=== PATIENT | male | born 1985 | race Caucasian/White ===

== ENCOUNTER 2017-05-22 15:12 | Inpatient (IN) | payer OTHER ==
[~2017-05-22] VITALS: Ht 180.3 cm; Wt 59.0 kg
[~2017-05-22 15:12] MED LIST: Acetaminophen PO; IBUP-1953 PO; SERT50TA PO; SUBOXON PO; TRAZ-144 PO
--- NOTE | 2017-05-22 15:45 | NUR ---
INTAKE ASSESSMENT RECEIVED PT AOX4, STABLE, AND AMBULATORY. VITAL SIGNS COMPLETE. BP A LITTLE LOW, BUT VITAL SIGNS ARE STABLE AND PATIENT IS NOT WEAK OR EXPERIENCING ANY NEGATIVE S/S. PT REPORTS NKA. PT REPORTS SEIZURE HX IN 2011. EXPLAINED DISPOSAL OF NARCOTICS. EXPLAINED UNIT PROTOCOLS AND POLICIES AND PT VERBALIZED UNDERSTANDING. WILL ADMIT PT UPON ARRIVAL TO THIRD FLOOR.
[2017-05-22 16:00] VITALS: BP 95/61
[2017-05-22 16:26] LABS: *AMPHETAMINE, URINE POSITIVE (NEGATIVE); *BARBITURATE, URINE POSITIVE (NEGATIVE); *CANNABINOID, URINE NEGATIVE (NEGATIVE); *COCCAINE, URINE NEGATIVE (NEGATIVE); *OPIATE, URINE POSITIVE (NEGATIVE); *PHENCYCLIDINE SCREEN,URINE NEGATIVE (NEGATIVE)
--- NOTE | 2017-05-22 16:31 | NUR ---
ADMISSION NOTE VITAL SIGNS BP-95/62 HR-84 O2-97% TEMP-98.5 PAIN 07/03 HEIGHT-5'11 WEIGHT-130 LBS ALLERGIES-NKA PATIENT IS A 31 YEAR OLD MALE ADMITTED TO [facility] ON 05/22/17 AT 1600. PATIENT IS UNDER THE CARE FOR DR FARMER FOR ETOH, OPIATE, BENZO, METH DEPENDENCE. PATIENT DENIES SUICIDAL OR HOMICIDAL IDEATIONS. PATIENT DENIES BEING HOSPITALIZED IN THE LAST 30 DAYS. PATIENT DENIES CHEST PAIN OR SOB. UPON ASSESSMENT, PATIENT HAS ONE ABSCESS TO RIGHT FOREARM AND ONE TO LEFT FOREARM. COWS 13 CIWA 12 UPON ADMISSION. NKA. AOX4. FULL CODE. ABLE TO ANSWER QUESTIONS FOR ADMISSION PROCESS. PATIENT DENIES HAVING PCP. BREATHING IS EVEN AND UNLABORED. PT AMBULATES WITH STEADY GAIT. PT REPORTS "A MILLION" TREATMENT CENTERS AND UNABLE TO LIST THEM ALL. REPORTS HX OF ANXIETY, DEPRESSION, HEPATITIS C. PT REPORTS BEING HOMELESS. PT SMOKES ABOUT 1 PACK OF CIGARETTES PER DAY. DR FARMER HAS BEEN NOTIFIED AND PLACED PT UNDER OBSERVATION. ALL NEEDS MET. ALL SAFETY MEASURES IN PLACE.BED IN LOWEST POSITION, LOCKED, SIDE RAILS UP X2 AND PADDED, CALL LIGHT WITHIN REACH. WILL MONITOR CLOSELY. SUBSTANCE ABUSE ETOH 1/5TH PER DAY FOR 4 MONTHS SINCE RELAPSE, STARTED AT AGE 23. LAST DRANK 1 BEER 05-22-17 BENZO 15 MG/DAY FOR 4 MONTHS SINCE RELAPSE, STARTED AGE 26. LAST TOOK 12 MG XANAX HEROIN 1-2G/DAY FOR 4 MONTHS SINCE RELAPSE, STARTED AGE 26. LAST USED 1/2 GRAM 05-20-17 METH 1 GRAM/DAY FOR 4 MONTS SINCE RELAPSE, STARTED AGE 29. LAST USED UNKNOWN AMOUNT 05-21-17
[2017-05-22] MEDS ORDERED: LORAZEPAM 2 MG/1 ML VIAL IM PRN (17:30)
[2017-05-22] MEDS ORDERED: ONDANSETRON 4 MG/2 ML VIAL IM PRN (17:30)
[2017-05-22] MEDS ORDERED: diphenhydrAMINE 50 MG CAPSULE PO PRN (17:30)
[2017-05-22] MEDS ORDERED: MIRALAX 17 GM POWD.PACK PO PRN (17:30)
[2017-05-22] MEDS ORDERED: MAG HYDROX/AL HYDROX/SIMETH 30 ML LIQUID UDC PO PRN (17:30)
[2017-05-22] MEDS ORDERED: ONDANSETRON ODT 4 MG TAB.RAPDIS SL PRN (17:30)
[2017-05-22] MEDS ORDERED: DIAZEPAM 10 MG TABLET PO PRN ×2 (17:30)
[2017-05-22] MEDS ORDERED: DICYCLOMINE HCL 20 MG TABLET PO PRN (17:30)
[2017-05-22] MEDS ORDERED: BUPRENORPHINE HCL 2 MG TAB.SUBL SL PRN (17:30)
[2017-05-22] MEDS ORDERED: THIAMINE HCL 200 MG/2 ML VIAL IM ONE (17:30)
[2017-05-22] MEDS ORDERED: ACETAMINOPHEN 325 MG TABLET PO PRN (17:30)
[2017-05-22] MEDS ORDERED: DIAZEPAM 5 MG TABLET PO PRN (17:30)
[2017-05-22] MEDS ORDERED: METHOCARBAMOL 750 MG TABLET PO PRN (17:30)
[2017-05-22] MEDS ORDERED: CLONIDINE HCL 0.1 MG TABLET PO PRN (17:30)
[2017-05-22] MEDS ORDERED: HYDROXYZINE PAMOATE 25 MG CAPSULE PO PRN (17:30)
[2017-05-22] MEDS ORDERED: LOPERAMIDE HCL 2 MG CAPSULE PO PRN ×2 (17:30)
[2017-05-22] MEDS: CALCIUM CARBONATE 500 MG TAB.CHEW PO PRN (17:50)
[2017-05-22] MEDS: DIAZEPAM 10 MG TABLET PO SCH ×2 (17:51→20:25)
[2017-05-22] MEDS: BUPRENORPHINE HCL 2 MG TAB.SUBL SL SCH ×2 (17:51→20:26)
--- NOTE | 2017-05-22 18:34 | NUR ---
END OF SHIFT NOTE ADMITTED PATIENT THIS SHIFT. PATIENT GIVEN VALIUM AND SUBUTEX ORDERED. PATIENT GIVEN PRN TUMS. COWS 13 CIWA 12 UPON ADMISSION. PATIENT PRESENTS WITH FLAT AFFECT AND DEPRESSED MOOD. PICTURES OF BILAT FOREARM WOUNDS TAKEN- ENDORSED TO NIGHT NURSE THAT ENGINEERING ADMINISTRATOR IS NOT WORKING AND IT IS SCHEDULED TO COME IN THE MORNING. PATIENT IS IN STABLE CONDITION. NO DISTRESS NOTED. PT DENIES S/I OR H/I. ALL NEEDS MET ALL SAFETY MEASURES IN PLACE. WILL ENDORSE TO NIGHT NURSE
[2017-05-22 19:57] LABS: BASOPHILS # (AUTO) 0.3 K/uL (0.0-8.0); BASOPHILS % (AUTO) 1.9 % (0.0-2.0); EOSINOPHILS # (AUTO) 0.2 K/uL (0.0-0.7); EOSINOPHILS % (AUTO) 1.4 % (0.0-7.0); HEMATOCRIT 40.6 % (40-50); HEMOGLOBIN 13.6 G/DL (14.0-18.0); LYMPHOCYTES # (AUTO) 1.4 K/UL (0.8-4.8); LYMPHOCYTES % (AUTO) 9.2 % (20.5-51.5); MEAN CORPUSCULAR HEMOGLOBIN 30.5 UUG (27.0-31.0); MEAN CORPUSCULAR HGB CONC 34 g/dL (32.0-37.0); MEAN CORPUSCULAR VOLUME 91.3 FL (82.0-92.0); MONOCYTES # (AUTO) 0.8 K/UL (0.1-1.30); MONOCYTES % (AUTO) 5.5 % (0.0-11.0); NEUTROPHILS # (AUTO) 12.2 K/UL (1.8-8.9); PLATELET COUNT (AUTO) 254 K/UL (150-450); RED BLOOD CELL COUNT(AUTO) 4.45 MIL/UL (4.7-6.1); WHITE BLOOD COUNT (AUTO) 14.9 K/UL (4.0-11.2)
[2017-05-22 20:00] VITALS: BP 107/61
--- NOTE | 2017-05-22 20:00 | NUR ---
STAR OF SHIFT NOTE PATIENT IN ROOM, ALERT AND ORIENTED X 4. RESPIRATION EVEN AND UNLABORED. PATIENT REPORTS ANXIETY, ABDOMINAL CRAMPING, HOT AND COLD SWEATS, CONSTIPATION. NO N/V. PATIENT STATES APPETITE IS POOR AT THIS TIME, HE ATTENDED THE LAST GROUP. ENCOURAGE FLUIDS. RECEIVED REPORT FROM DAY SHIFT NURSE. PATIENT IS A 31 YEAR OLD MALE NEWLY ADMITTED FOR SUBSTANCE DEPENDENCE. PATIENT IS ON 5 DAY VALIUM AND 5 DAY SUBUTEX TAPER. PATIENT REPORTS PMH OF ANXIETY,DEPRESSION, HEP C AND SEIZURE LAST ONE WAS 2011. UPON ADMISSION, PATIENT WITH ABSCESSES ON BILATERAL ARMS. PATIENT WAS GIVEN PRN VALIUM,SUBUTEX AND TUMS. LAST COWS 13 AND CIWA 12. ON FALL/SEIZURE PRECAUTION. SAFETY MEASURES IN PLACE. CALL LIGHT IN REACH. WILL CONTINUE TO MONITOR.
[2017-05-22 20:13] LABS: ALANINE AMINOTRANSFERASE 61 U/L (16-63); ALKALINE PHOSPHATASE 81 U/L (50-136); ASPARTATE AMINOTRANSFERASE 59 U/L (15-37); BILIRUBIN,TOTAL 0.4 mg/dL (0.2-1.0); CARBON DIOXIDE 28 mmol/L (21-32); CHLORIDE 96 mmol/L (98-107); CREATININE 0.8 mg/dL (0.6-1.3); GLUCOSE 81 mg/dL (74-106); MAGNESIUM 2.1 mg/dL (1.8-2.4); POTASSIUM 4.3 mmol/L (3.5-5.1); TOTAL PROTEIN, SERUM 7.5 g/dL (6.4-8.2); UREA NITROGEN, BLOOD 30 mg/dL (7-18)
[2017-05-22] MEDS: GABAPENTIN 300 MG CAPSULE PO SCH (20:25)
[2017-05-22 20:33] LABS: ETHANOL < 3 MG/DL (0-0)
--- NOTE | 2017-05-22 20:41 | NUR ---
PRN MIRALAX ADMINISTRATION PATIENT STATES HE HASN'T HAVE A BOWEL MOVEMENT FOR 4 DAYS. PRN MIRALAX GIVEN. ENCOURAGE FLUIDS. WILL MONITOR FOR EFFECTIVENESS
[2017-05-22] MEDS ORDERED: TRAZODONE 50 MG TABLET PO SCH (21:00)
[2017-05-23] VITALS: BP 94/57
[2017-05-23 04:00] VITALS: BP 88/56
--- NOTE | 2017-05-23 06:51 | NUR ---
PRN MIRALAX RE-ASSESSMENT PATIENT DID NOT HAVE BOWEL MOVEMENT . WILL ENDORSE TO NEXT SHIFT. CONTINUE TO ENCOURAGE FLUIDS.
--- NOTE | 2017-05-23 06:53 | NUR ---
END OF SHIFT NOTE PATIENT REMAIN ALERT AND ORIENTED X 4. RESPIRATION EVEN AND UNLABORED. PATIENT REPORTED ANXIETY, ABDOMINAL CRAMPING, HOT AND COLD SWEATS, CONSTIPATION. NO N/V. DENIES ANY PAIN BEGINNING OF SHIFT. PATIENT STATES APPETITE IS POOR, HE ATTENDED THE LAST GROUP. ENCOURAGE FLUIDS. PATIENT IS ON 5 DAY VALIUM AND 5 DAY SUBUTEX TAPER, TOLERATED WELL, NO ADVERSE REACTION. UPON ADMISSION, PATIENT WITH ABSCESSES ON BILATERAL ARMS. PATIENT WAS GIVEN PRN MIRALAX AT 2040. ON FALL/SEIZURE PRECAUTION. SAFETY MEASURES IN PLACE. CALL LIGHT IN REACH. WILL CONTINUE TO MONITOR. SLEPT 7 HOURS. FLUID INTAKE 1,095 ML. VOIDED X 1. NO BM. LAST COWS 1 AND CIWA 1. ENDORSED TO NEXT SHIFT. PATIENT NO BM, MIRALAX INEFFECTIVE.
--- NOTE | 2017-05-23 07:55 | NUR ---
START OF SHIFT: RECEIVED PT A/O X 4. HE PRESENTS WITH ANXIOUS MOOD AND CONGRUENT AFFECT. HE REPORTS RESTLESS SLEEP LAST NIGHT WITH NIGHT SWEATS. HE REPORTS CHILLS,ANXIETY AND BODY ACHES. TREMORS NOTED. COWS 8 CIWA 8. ENCOURAGED INCREASED FLUIDS AND REST TODAY. VALIUM/SUBUTEX TAPER IN PROGRESS. WILL CONTINUE TO MONITOR AND PROVIDE SAFE AND SUPPORTIVE ENVIRONMENT.
[2017-05-23 08:00] VITALS: BP 100/60
[2017-05-23] MEDS: GABAPENTIN 300 MG CAPSULE PO SCH ×3 (08:34→20:25)
[2017-05-23] MEDS: FOLIC ACID 1 MG TABLET PO SCH (08:34)
[2017-05-23] MEDS: MULTIVITAMINS,THERAPEUTIC TABLET PO SCH (08:34)
[2017-05-23] MEDS: DIAZEPAM 10 MG TABLET PO SCH ×3 (08:36→20:25)
[2017-05-23] MEDS: IBUPROFEN 600 MG TABLET PO PRN (08:36)
[2017-05-23] MEDS: THIAMINE HCL 100 MG TABLET PO SCH (08:37)
[2017-05-23] MEDS: BUPRENORPHINE HCL 2 MG TAB.SUBL SL SCH ×3 (08:37→22:08)
[2017-05-23] MEDS ORDERED: TUBERCULIN,PURIF.PROT.DERIV. 5 TU/0.1 ML TEST ID ONE (09:00)
[2017-05-23 12:00] VITALS: BP 96/69
[2017-05-23] MEDS ORDERED: LIDOCAINE VISCUS 2% 15 ML UDC MM PRN (15:00)
[2017-05-23 16:00] VITALS: BP 99/74
--- NOTE | 2017-05-23 16:04 | NUR ---
Therapist prompted client about group times. Client stated he was attending but got pulled out of group by .
[2017-05-23] MEDS: CALCIUM CARBONATE 500 MG TAB.CHEW PO PRN (19:01)
--- NOTE | 2017-05-23 19:06 | NUR ---
END OF SHIFT: PT CONTINUES ON VALIUM/SUBUTEX TAPER.LAST COWS 8 CIWA 6 HE C/O BODY ACHES, ANXIETY,CRAWLING SKIN AND IRRITABILITY. PT STATES THE DETOX MEDS ARE MILDLY EFFECTIVE. HE WAS COMPLIANT WITH INCREASED FLUIDS. HE C/O CANKER SORES IN HIS MOUTH AND NEW ORDER FOR VISCOUS LIDOCAINE PER MD. HIS APPETITE IS POOR. PPD PLANTED TO [facility]. WILL PASS SHIFT REPORT TO ONCOMING NIGHT NURSE.
--- NOTE | 2017-05-23 19:45 | NUR ---
Start of Shift Note: Report received from day shift nurse. Pt is a 31 y/o male admitted on 05/22/2017 for medically-supervised withdrawal from opiates, ETOH, benzodiazepines, and methamphetamine. Pt reports using 1-2gm IV heroin, drinking 750ml tequila, taking 15mg Xanax, and using 1gm IV methamphetamine salts daily for three months. Pt is on 5-day Valium and Subutex tapers. Pt received with last COWS=8/CIWA=6, and PRN's Xylocaine viscous, Motrin, Robaxin, and Tums were given during day shift. Pt is a full code. Pt reports NKA. Pt is on a regular diet. Pt has abscess on left forearm with Vibramycin ordered. PMHx: anxiety, depression, Hepatitis-C, hx of seizure. Pt received in room, and reports anxiety, diaphoresis, generalized pain, and tremor. Bed is in low position and locked, side rails up x2, call light within reach. Will continue to monitor.
[2017-05-23 20:00] VITALS: BP 105/62
[2017-05-23] MEDS: DOXYCYCLINE HYCLATE 100 MG TABLET PO SCH (20:26)
[2017-05-23] MEDS: TRAZODONE 100 MG TABLET PO PRN (22:25)
--- NOTE | 2017-05-23 22:25 | NUR ---
PRN Trazodone: Pt c/o inability to sleep. Administered PRN Trazodone as ordered. Will continue to monitor.
[2017-05-24] VITALS: BP_SYST 101; BP_SYST 106; BP_DIAS 47; BP_DIAS 48
--- NOTE | 2017-05-24 | NUR ---
COWS/CIWA Deferred: COWS and CIWA are deferred for sleep. V/S stable. All safety precautions are in place. Will continue to monitor. Addendum: 05/24/17 at 0528 by MILAGROS NUÑEZ RN Amended: Links added.
--- NOTE | 2017-05-24 04:00 | NUR ---
Vitals Refused, COWS/CIWA Deferred: Pt refuses 04:00 V/S. Pt educated on risks and benefits but continued to refuse. COWS and CIWA are deferred for sleep. All safety precautions are in place. Will continue to monitor. Addendum: 05/24/17 at 0528 by MILAGROS NUÑEZ RN Amended: Links added.
--- NOTE | 2017-05-24 07:00 | NUR ---
End of Shift Note: Pt is a 31 y/o male admitted to [facility] on 05/22/2017 for medically-supervised withdrawal from opiates, ETOH, benzodiazepines, and methamphetamine. Pt reported a PMHx of anxiety, depression, Hepatitis-C, and hx of seizure. Pt reports NKA. Pt is a full code. Pt is on a regular diet. Pt has abscess on left forearm with Vibramycin ordered. Pt reported using 1-2gm IV heroin, drinking 750ml tequila, taking 15mg Xanax, and using 1gm IV methamphetamine salts daily for three months. Pt continues on 5-day Valium and Subutex tapers. Scheduled medication regime effectively managed s/s of withdrawal this shift. Last COWS=7/CIWA=7 at 20:00. V/S stable throughout shift, with hypotension. Total fluid intake this shift: 4650 ml; output: urine x 7 and BM x 0. PRN Trazodone was given for insomnia, which was not effective as pt slept 3 hours this shift. Pt is currently in bed, all needs have been attended and met. Pt endorsed to day shift nurse.
--- NOTE | 2017-05-24 07:40 | NUR ---
BEGINNING OF SHIFT Patient endorsement report received from maintenance mechanic 2nd shift nurse, all pertinent information discussed. Patient is a 31 year old male, with admitting Dx: opiate/etoh/bzo dependence. with substance use history of methamphetamine. Patient admitted 05/22/2017, currently with ongoing taper of 5 day Subutex and 5 day Valium as ordered, well tolerated, no ASE noted, under close observation. Patient received PRN: trazodone during maintenance mechanic 2nd shift. Patient slept for 3 hours. Patient received awake, alert and oriented x4, educated regarding plan of care for the day and medication regimen with good verbal understanding. Safety measures in place. call light kept with in reach, will continue to monitor closely. safety measures in place.
[2017-05-24 08:22] VITALS: BP 111/72
[2017-05-24] MEDS: MULTIVITAMINS,THERAPEUTIC TABLET PO SCH (08:24)
[2017-05-24] MEDS: GABAPENTIN 300 MG CAPSULE PO SCH (08:24)
[2017-05-24] MEDS: DIAZEPAM 5 MG TABLET PO SCH ×4 (08:25→20:41)
[2017-05-24] MEDS: DOXYCYCLINE HYCLATE 100 MG TABLET PO SCH ×2 (08:25→20:41)
[2017-05-24] MEDS: SERTRALINE HCL 100 MG TABLET PO SCH (08:25)
[2017-05-24] MEDS: THIAMINE HCL 100 MG TABLET PO SCH (08:25)
[2017-05-24] MEDS: FOLIC ACID 1 MG TABLET PO SCH (08:25)
[2017-05-24] MEDS ORDERED: BUPRENORPHINE HCL 2 MG TAB.SUBL SL SCH (09:00)
[2017-05-24 09:08] LABS: HEPATITIS B SURFACE AG Negative (Negative)
[2017-05-24] MEDS ORDERED: DIAZEPAM 10 MG TABLET PO ONE (10:15)
--- NOTE | 2017-05-24 10:37 | NUR ---
Client was encouraged to attend the morning group. He did not confirm that he would, he stated that he was looking for his nurse.
--- NOTE | 2017-05-24 10:38 | NUR ---
ONE TIME VALIUM Per Dr. Lombardo, patient to receive a one time dose of Valium 10mg Po as ordered. Patient with current ciwa score of: 7. Medication administered as ordered, will continue to monitor.
[2017-05-24 12:37] VITALS: BP 92/65
[2017-05-24] MEDS: IBUPROFEN 600 MG TABLET PO PRN (12:39)
--- NOTE | 2017-05-24 12:39 | NUR ---
PRN MOTRIN Patient c/o abscess pain 01/31, provided with non pharmacological interventions, with no relief, administered Motrin as ordered, will monitor closely.
--- NOTE | 2017-05-24 13:39 | NUR ---
MOTRIN REASSESSMENT Patient reports medication with relief, current pain level 0/10, will continue to monitor.
[2017-05-24] MEDS: GABAPENTIN 400 MG CAPSULE PO SCH ×2 (14:36→20:41)
[2017-05-24] MEDS: BACLOFEN 20 MG TABLET PO SCH ×2 (14:36→20:41)
[2017-05-24] MEDS: BUPRENORPHINE HCL 2 MG TAB.SUBL SL SCH ×2 (14:36→20:42)
[2017-05-24 17:00] VITALS: BP 93/60
--- NOTE | 2017-05-24 19:01 | NUR ---
END OF SHIFT Patient alert and oriented x4, vital signs stable during shift. Patient compliant with therapeutic plan of care. Patient with admitting Dx: opiate/bzo/etoh dependence. Patient currently with ongoing 5 day Subutex and 5 day Valium taper as ordered, well tolerated, no ASE noted. 0900 assessment patient presented with: heart rate of 101, c/o chills, restlessness, mild bone and joint aches, nasal stuffiness, stomach cramps, irritable, anxiety, barely sweating and mild agitation with cow score of: 10 and ciwa score of: 7; 1300 assessment patient presented with: c/o chills, restlessness, mild bone and joint aches, nasal stuffiness, stomach cramps, irritable, anxiety, barely sweating and mild agitation with cow score of: 8 and ciwa score of: 7. 1700 assessment patient presented with: heart rate of 97, c/o chills, restlessness, mild bone and joint aches, nasal stuffiness, stomach cramps, irritable, anxiety, barely sweating and mild agitation with cow score of: 9 and ciwa score of: 7. During shift patient received a one time dose of Valium 10mg Po as ordered by Dr. Lombardo at 1038, medication effective. Received PRN Motrin as ordered for pain, medication effective. Patient denies any SI/HI. Encouraged to attend group therapies/sessions to learn new coping skills to prevent relapse, noted attending and participating. Encouraged adequate PO fluid intake as tolerated. Safety measures in place. Call light kept with in reach. All needs met and rendered. Patient endorsed to hourly shift nurse, all pertinent information discussed.
--- NOTE | 2017-05-24 19:30 | NUR ---
Start of Shift Note: Patient is a 31 y/o male admitted on 05/22/17 for ETOH, Benzo and Opiate dependence. Patient reported with medical history of Anxiety, Depression, Hepatitis C and history of seizure in 2012. Patient is on a regular diet with no known food and drug allergies. Full Code status. Patient is on a 5-day Valium and 5-day Subutex taper and tolerating well. Last CIWA is 9 CIWA 7 at 1600. Patient was given PRN Motrin and a one time Valium during the day. Patient is alert & oriented x4. No shortness of breath noted. Respiration even & unlabored. Abdomen soft & non-distended. Slight nausea with no episode of vomiting noted. Patient denies pain/discomfort at this time. Patient complains of anxiety. No hand tremors noted. Patient denies hallucinations. Safety precautions are in place. Bed locked in lowest position. Both side rails up. Call light within pt's reach. Will continue to monitor patient. Addendum: 05/24/17 at 3985 by BOBBY GAVIRIA RN Patient noted with abscess on bilateral arms.
[2017-05-24 20:00] VITALS: BP 120/60
[2017-05-24] MEDS: PRAZOSIN HCL 1 MG CAPSULE PO SCH (20:41)
[2017-05-25] VITALS (7 sets, daily range): BP systolic 89–107; BP diastolic 47–69
[2017-05-25] MEDS: IBUPROFEN 600 MG TABLET PO PRN (00:23)
[2017-05-25] MEDS: TRAZODONE 100 MG TABLET PO PRN (00:24)
--- NOTE | 2017-05-25 00:24 | NUR ---
PRN Trazodone and Motrin Patient complains of mild headache. No facial grimacing noted. No s/s of distress noted. Pt also requesting for medication to help him sleep. PRN Trazodone and Motrin administered as ordered. Will reassess
--- NOTE | 2017-05-25 01:24 | NUR ---
PRN Reassessment Patient asleep in bed and appears comfortable. No facial grimacing noted. No s/s of distress noted. Will continue to monitor patient.
--- NOTE | 2017-05-25 04:00 | NUR ---
Vitals/Cows/Ciwa deferred Patient refused vitals at this time. Patient asleep in bed and appears comfortable. No shortness of breath noted. Unable to assess Ciwa at this time. Will continue to monitor patient.
--- NOTE | 2017-05-25 07:14 | NUR ---
End of Shift Note: Patient had an uneventful night. Patient continues on his Valium and Subutex taper and tolerating well. Last COWS 3 CIWA 3 at 0000. Patient was given PRN Zofran, Motrin & Trazodone during my shift. Patient remained compliant with treatment plan. Patient stable and vitals remained WNL. . Patient slept for a total of 5 hours. Pt consumed 2970ml of fluids. Voided 6x with no bowel movement. All needs attended & met. Patient remained stable. Patient compliant with tx plan. Safety precautions are in place. Will endorse pt to day shift nurse.
[2017-05-25 07:28] LABS: BASOPHILS # (AUTO) 0.1 K/uL (0.0-8.0); EOSINOPHILS # (AUTO) 0.2 K/uL (0.0-0.7); EOSINOPHILS % (AUTO) 1.5 % (0.0-7.0); HEMOGLOBIN 12.6 G/DL (14.0-18.0); LYMPHOCYTES # (AUTO) 1.8 K/UL (0.8-4.8); LYMPHOCYTES % (AUTO) 17.2 % (20.5-51.5); MEAN CORPUSCULAR HEMOGLOBIN 30.7 UUG (27.0-31.0); MEAN CORPUSCULAR HGB CONC 33 g/dL (32.0-37.0); MEAN CORPUSCULAR VOLUME 92.5 FL (82.0-92.0); MONOCYTES # (AUTO) 0.6 K/UL (0.1-1.30); MONOCYTES % (AUTO) 6.3 % (0.0-11.0); NEUTROPHILS # (AUTO) 7.5 K/UL (1.8-8.9); PLATELET COUNT (AUTO) 235 K/UL (150-450); WHITE BLOOD COUNT (AUTO) 10.2 K/UL (4.0-11.2)
--- NOTE | 2017-05-25 07:30 | NUR ---
START OF SHIFT Pt 31 y/o male admitted for substance dependence. Pt received in room on bed awake, watching television. Pt alert and oriented to name, place, and time. Perrla. Skin warm and moist to touch. Respirations even and unlabored. It was reported that pt slept for 5 hours last night. Bed on lowest position with side rails x2 up for safety. Call light within reach. No distress noted at this time.
[2017-05-25 07:57] LABS: CARBON DIOXIDE 36 mmol/L (21-32); CHLORIDE 105 mmol/L (98-107); CREATININE 0.7 mg/dL (0.6-1.3); FERRITIN 70 ng/mL (26-388); GLUCOSE 88 mg/dL (74-106); MAGNESIUM 2.1 mg/dL (1.8-2.4); POTASSIUM 3.6 mmol/L (3.5-5.1); UREA NITROGEN, BLOOD 18 mg/dL (7-18)
[2017-05-25 08:04] LABS: BAND % (MANUAL) 9 % (0-10); LYMPHOCYTES % (MANUAL) 23 % (20-40); MONOCYTES % (MANUAL) 5 % (2-10); NEUTROPHILS % (MANUAL) 63 % (42-75)
[2017-05-25] MEDS: FOLIC ACID 1 MG TABLET PO SCH (08:45)
[2017-05-25] MEDS: SERTRALINE HCL 100 MG TABLET PO SCH (08:45)
[2017-05-25] MEDS: DOXYCYCLINE HYCLATE 100 MG TABLET PO SCH (08:45)
[2017-05-25] MEDS: BUPRENORPHINE HCL 2 MG TAB.SUBL SL SCH ×3 (08:45→20:58)
[2017-05-25] MEDS: DIAZEPAM 5 MG TABLET PO SCH ×3 (08:46→20:59)
[2017-05-25] MEDS: GABAPENTIN 400 MG CAPSULE PO SCH ×2 (08:46→14:40)
[2017-05-25] MEDS: THIAMINE HCL 100 MG TABLET PO SCH (08:46)
[2017-05-25] MEDS: BACLOFEN 20 MG TABLET PO SCH ×3 (08:46→20:59)
[2017-05-25] MEDS: MULTIVITAMINS,THERAPEUTIC TABLET PO SCH (08:46)
[2017-05-25] MEDS ORDERED: BUPRENORPHINE HCL 2 MG TAB.SUBL SL ONE (11:00)
[2017-05-25] MEDS ORDERED: DIAZEPAM 10 MG TABLET PO ONE (11:00)
--- NOTE | 2017-05-25 17:38 | NUR ---
MD COMMUNICATION Contacted Dr. Rosario for wound consult and pt status with bilateral abscesses. MD notified of bilateral arm pain related to the abscess. MD order to put warm compress at this time, and he will come assess pt tomorrow 05/26/17.
[2017-05-25] MEDS ORDERED: HYDROXYZINE PAMOATE 25 MG CAPSULE PO PRN (18:00)
--- NOTE | 2017-05-25 18:22 | NUR ---
END OF SHIFT Pt 31 y/o male admitted for substance dependence. Pt alert and oriented to name, place, and time. Perrla. Skin warm and slightly moist to touch. Respirations even and unlabored. Bilateral hand tremors noted. Pt also stated had periods of sweats and chills throughout the day this morning. Pt observed mostly in patio and dining room throuhgout the day. Pt attended group activity. Pt was seen by MD today. Pt medication compliant and tolerated well. No ASE noted. Bed on lowest position with side rails x2 up for safety. Call light within reach. No distress noted at this time.
--- NOTE | 2017-05-25 18:39 | NUR ---
NSG ENTRY MD here to evaluate pt .
[2017-05-25] MEDS: KETOROLAC TROMETHAMINE 30 MG INJ IM PRN (18:47)
--- NOTE | 2017-05-25 18:48 | NUR ---
PRN Pt states 8/10 left arm pain. Toradol IM prn per MD order given and tolerated well.
--- NOTE | 2017-05-25 19:43 | NUR ---
Start of Shift received report from AM nurse. Patient is a 31 year old male admitted to [facility] on 05-22-17 for Alcohol and opiate detox. Patient has history of using ETOH (tequila) 1/5th per day since age 23. Also using Xanax 15 mg daily since age 26, IV heroin 1-2 grams daily since age 26, and IV methamphetamine 1 gram daily since age 29. Patient also has history of anxiety, depression, Hepatitis C, and a seizure in 2011. Patient is a full code, regular diet and has no known allergies. He is on a 5 day valium and subutex taper. He has an abscess to his left forearm which is planned to be incised and drained tomorrow am. Patient currently using warm compress to area for relief. He received torodol IM for pain with effectiveness. Last CIWA was 3 and COWS 4. Patient denies SI or HI. Has been up ambulating AD genie on unit. Continues to display moderate symptoms of withdrawal. Bed in lowest locked position. Call light within reach.
[2017-05-25] MEDS: LACTOBACILLUS RHAMNOSUS GG 1 EACH CAPSULE PO SCH (20:58)
[2017-05-25] MEDS: GABAPENTIN 300 MG CAPSULE PO SCH (20:58)
[2017-05-25] MEDS: SULFAMETH/TRIMETH 800/160 MG TABLET PO SCH (20:59)
[2017-05-25] MEDS: PRAZOSIN HCL 1 MG CAPSULE PO SCH (21:00)
--- NOTE | 2017-05-25 21:00 | NUR ---
Medication non administered. Prazosin non administered at 2100 due to decreased BP and HR.
[2017-05-26] VITALS: BP 90/60
[2017-05-26] MEDS: TRAZODONE 100 MG TABLET PO PRN (01:52)
--- NOTE | 2017-05-26 01:55 | NUR ---
PRN MEDICATION TRAZODONE 100 MG PO PRN ADMINISTERED AT 0155 FOR INSOMNIA. EFFECT PENDING
--- NOTE | 2017-05-26 03:00 | NUR ---
Reassessment of patient Reassessment of patient one hour after administration of PRN trazodone 100 mg patient resting comfortably in bed with eyes closed. Trazodone appears to have been effective.
--- NOTE | 2017-05-26 04:00 | NUR ---
COWS/CIWA DEFERRED VITAL SIGNS REFUSED PATIENT REFUSED 0400 VITAL SIGNS. PATIENT WITH EYES CLOSED. RESPIRATIONS 18. BREATHING UNLABORED, EVEN. CIWA/COWS DEFERRED FOR SLEEP
--- NOTE | 2017-05-26 06:53 | NUR ---
End of shift report given to AM nurse. Patient is a 31 year old male admitted to [facility] on 05-22-17 for Alcohol and opiate detox. Patient has history of using ETOH (tequila) 1/5th per day since age 23. Also using Xanax 15 mg daily since age 26, IV heroin 1-2 grams daily since age 26, and IV methamphetamine 1 gram daily since age 29. Patient has history of anxiety, depression, Hepatitis C, as well as reports of a seizure in 2011. Patient is a full code, on a regular diet and has no known allergies. He is on a 5 day valium and subutex taper. He has an abscess to his left forearm which is planned to be incised and drained tomorrow am. Patient currently using warm compress to area for relief. Vital signs at 2000 107/50, P 52, R 16, SPO2 95% on RA, T 98.0. Patients COWS 8 CIWA 6. Rechecked Vital signs prior to 2100 medications. BP 101/66, P 60, R 16, T 98.0, Prazosin non administered at 2100 due to not meeting parameters for administration. Vital signs at 0000 BP 90/60, P 65, R 16, SPO2 100% on RA, T 98.4. CIWA 6, COWS 4. Patient received Trazodone for insomnia at 0155, with effect noted one hour later. Patient denies SI or HI. He appears anxious, restless and agitated much of the shift. Has been up ambulating Ad genie on unit. Continues to display moderate symptoms of withdrawal. Intake 1550 ML Output 3 voids. Slept total of 4 hours. Bed in lowest locked position. Call light within reach. Will continue to monitor
--- NOTE | 2017-05-26 07:30 | NUR ---
Start of Shift Copier And Printer Field Technician received report on 31 year old male admitted on 05/22/17 for ETOH, Benzodiazepine, Heroin and Methamphetamine detoxification. Pt has NKA< is a full code and on a regular diet. Pt reports PMH of anxiety, depression, Hepatitis C and seizure, in 2011. Pt has an abscess on the left arm that is scheduled for I&D today. Last COWS of 5 and CIWA of 6, per report. Pt had PRN Trazodone administered on the railroad operating engineer. Copier And Printer Field Technician encounters pt at nurses station. Pt is calm, cooperative, A/O x4 and makes needs known. Anxious about medications. Bed in low position, wheels locked, side rails up x2 and call light within reach.
[2017-05-26 08:13] VITALS: BP 106/48
[2017-05-26] MEDS: SERTRALINE HCL 100 MG TABLET PO SCH (08:23)
[2017-05-26] MEDS: THIAMINE HCL 100 MG TABLET PO SCH (08:23)
[2017-05-26] MEDS: FOLIC ACID 1 MG TABLET PO SCH (08:23)
[2017-05-26] MEDS: GABAPENTIN 300 MG CAPSULE PO SCH (08:23)
[2017-05-26] MEDS: BACLOFEN 20 MG TABLET PO SCH ×3 (08:23→21:07)
[2017-05-26] MEDS: DIAZEPAM 5 MG TABLET PO SCH ×2 (08:23→21:07)
[2017-05-26] MEDS: LACTOBACILLUS RHAMNOSUS GG 1 EACH CAPSULE PO SCH ×2 (08:23→21:07)
[2017-05-26] MEDS: BUPRENORPHINE HCL 2 MG TAB.SUBL SL SCH ×2 (08:23→21:07)
[2017-05-26] MEDS: SULFAMETH/TRIMETH 800/160 MG TABLET PO SCH ×2 (08:23→21:07)
[2017-05-26] MEDS: MULTIVITAMINS,THERAPEUTIC TABLET PO SCH (08:23)
[2017-05-26] MEDS ORDERED: BUPRENORPHINE HCL 2 MG TAB.SUBL SL SCH (09:00)
[2017-05-26] MEDS ORDERED: BUPRENORPHINE HCL 2 MG TAB.SUBL SL ONE (12:15)
[2017-05-26] MEDS ORDERED: DIAZEPAM 5 MG TABLET PO ONE (12:15)
--- NOTE | 2017-05-26 12:20 | NUR ---
1:1 while showering Pt has been informed he will need to have staff accompany pt as 1:1 while showering. This is due to pt having defecated in the shower this am. Pt has a history of this behavior, from last admission. Pt states, " when I come off drugs, I shit the shower sometimes." Pt aware of need for 1:1 staffing and verbalizes understanding the need for.
--- NOTE | 2017-05-26 12:45 | NUR ---
OT Valium and Subutex Pt administered medication per order, with COWS of 7 and CIWA of 5 recorded. Pt tolerated well. Will continue to monitor, support and encourage according to plan of care.
[2017-05-26 12:48] VITALS: BP 102/60
--- NOTE | 2017-05-26 13:28 | NUR ---
OT Subutex Re-assessment Pt COWS show shows some help with detox symptoms.
--- NOTE | 2017-05-26 13:45 | NUR ---
OT Valium Re-assessment Pt is less anxious and states, " I feel a bit better."
[2017-05-26] MEDS: KETOROLAC TROMETHAMINE 30 MG INJ IM PRN (14:52)
[2017-05-26] MEDS: GABAPENTIN 400 MG CAPSULE PO SCH ×2 (14:52→21:07)
--- NOTE | 2017-05-26 14:52 | NUR ---
IM Toradol Pt complain of 8/10 pain from abscess. Industrial Safety And Health Technician administered medication per order. Will continue to monitor, support and encourage according to plan of care.
--- NOTE | 2017-05-26 15:05 | NUR ---
Endorsement Silverware Buffer endorsed report on 31 year old male admitted on 05/22/17 for ETOH, Benzodiazepine, Heroin and Methamphetamine detoxification, with no further comments, questions or concerns. Pt has NKA, is a full code and on a regular diet. Pt reports PMH of anxiety, depression, Hepatitis C and seizure, in 2011. Pt has an abscess on the left arm that is scheduled for I&D today. Last COWS of 6 and CIWA of 4, per lead technical writer evaluation. Pt had PRN Toradol administered. Pt is calm, cooperative, A/O x4 and makes needs known. Anxious about medications. Bed in low position, wheels locked, side rails up x2 and call light within reach.
--- NOTE | 2017-05-26 15:05 | NUR ---
ENDORSEMENT Pt endorsed to me. All information received. Pt received walking around the hallway.
--- NOTE | 2017-05-26 15:30 | NUR ---
Therapist prompted client about group times. Client stated he will try to attend afternoon group but he is waiting for MD to drain his abscess.
[2017-05-26 16:00] VITALS: BP 107/60
[2017-05-26] MEDS ORDERED: LIDOCAINE 2%-EPI 1:100,000 20 ML VIAL TP ONE (16:45)
[2017-05-26] MEDS ORDERED: LIDOCAINE 1%-EPI 1:200,000 MPF 30 ML VIAL IJ ONE (17:15)
--- NOTE | 2017-05-26 17:50 | NUR ---
I&D Dr. Rosario on unit for I&D procedure of left forearm, completed and pt tolerated well.
--- NOTE | 2017-05-26 19:45 | NUR ---
START OF SHIFT report RECEIVED FROM AM nurse. Patient is a 31 year old male admitted to [facility] on 05-22-17 for Alcohol and opiate detox. Patient has history of using ETOH (tequila) 1/5th per day since age 23. Also using Xanax 15 mg daily since age 26, IV heroin 1-2 grams daily since age 26, and IV methamphetamine 1 gram daily since age 29. Patient has history of anxiety, depression, Hepatitis C, as well as reports of a seizure in 2011. Patient is a full code, on a regular diet and has no known allergies. He is on a 5 day valium and subutex taper. He has an abscess to his left forearm which was incised and drained this afternoon. Currently packed and covered. Last COWS 4 CIWA 3. Patient currently on room restriction, and 1:1 for showering. Patient was nioted to be asking other clients for medications. He also was observed purging in the shower. Patient denies any current self induced vomiting. Denies SI or HI. Vital signs stable. Call light within reach. Safety measures in place. Bed in locked and lowest position.
[2017-05-26 20:00] VITALS: BP 118/74
[2017-05-26] MEDS: PRAZOSIN HCL 1 MG CAPSULE PO SCH (21:07)
[2017-05-27] VITALS: BP 110/66
[2017-05-27] MEDS: TRAZODONE 100 MG TABLET PO PRN ×2 (00:24→21:40)
--- NOTE | 2017-05-27 00:31 | NUR ---
PRN MEDICATION Patient received trazodone 100 mg PO for insomnia effect pending
--- NOTE | 2017-05-27 00:50 | NUR ---
1:1 Patient was observed purging in his bathroom by [employer] doing rounds. Noted large amount of brown emesis in toilet. Patient adamantly denied purging. Nurse discussed this with patient with noted restlessness, defensive behavior, and inability to acknowledge this as true. Patients vital signs taken and WNL. Patient with noted agitation and demanding a smoke break. Patient unable to follow room restriction rules, leaving room, cussing at charge nurse and having difficulty following protocol. Patient was placed on 1:1 for safety at 0050.
--- NOTE | 2017-05-27 01:31 | NUR ---
REASSESSMENT OF PATIENT Patient reassessed one hour after administration of trazodone PRN for insomnia./ Patient esting comfortably in bed, with eyes closed. Remains on 1:1. Trazodone appears to have been effective.
--- NOTE | 2017-05-27 04:10 | NUR ---
COWS/CIWA deferred/VS refused Ptient in bed with eyes closed refused vital signs at 0400. COWS/CIWA deferred for sleep. Patient resting with eyes closed, breathing even and unlabored. Respirations 16.
--- NOTE | 2017-05-27 06:56 | NUR ---
END OF SHIFT REPORT: Endorsement to AM nurse. Patient is a 31 year old male admitted to [facility] on 05-22-17 for opiate, benzo, and ETOH detox. Patient is on a 5 day valium and subutex taper. He has past history of anxiety, depression, eating D/O NOS, Hepatitis C, and a seizure in 2011. Currently had an abscess on left forearm which was incised and drained on 05-26-17. Area is packed and covered with gauze bandage. Patient continues to display withdrawal symptoms with last COWS 7, CIWA 8. He is restless, anxious, and becomes easily angered when challenged, when asked questions or when he does not receive instant gratification. During shift patient was observed purging in his bathroom by med tech. Patient adamantly denied this behavior to nurse. Patient also having difficulty with following room restriction, was not following rules, and became verbally aggressive with charge nurse and med tech. Patient was placed on a 1:1 at 0050. Patient received Trazodone 100 mg PRN for sleep with good effect noted. Total sleep 4 hours, Intake 4798 ml output 6 voids. Safety measures in place. Will continue to monitor. Remains on 1:1
[2017-05-27 08:00] VITALS: BP 103/63
--- NOTE | 2017-05-27 08:10 | NUR ---
START OF SHIFT NOTE Received report from night nurse, 31 year old male admitted for Alcohol and opiate detox. Pt reported PMH of anxiety, depression, Hepatitis C, seizure in 2011. Pt cont on a 5 day Valium and Subutex taper. Pt was received PRN Trazodone slept for 4 hours, Last CIWA-8, COWS-7. Per endorsement pt cont on 1:1 for safety. Received pt alert oriented x4, Presented with anxiety agitation. Breathing normal no SOB noted. Skin intact warm and dry to touch. Educated pt with plan of care and medication regimen with good verbal understanding. Safety measures in place, Call light within reach. Will cont to monitor.
[2017-05-27] MEDS: LACTOBACILLUS RHAMNOSUS GG 1 EACH CAPSULE PO SCH ×2 (08:58→21:40)
[2017-05-27] MEDS: FOLIC ACID 1 MG TABLET PO SCH (08:58)
[2017-05-27] MEDS: GABAPENTIN 400 MG CAPSULE PO SCH ×3 (08:58→21:40)
[2017-05-27] MEDS: BACLOFEN 20 MG TABLET PO SCH ×3 (08:58→21:40)
[2017-05-27] MEDS: SULFAMETH/TRIMETH 800/160 MG TABLET PO SCH ×2 (08:58→21:40)
[2017-05-27] MEDS: SERTRALINE HCL 100 MG TABLET PO SCH (08:59)
[2017-05-27] MEDS: THIAMINE HCL 100 MG TABLET PO SCH (08:59)
[2017-05-27] MEDS: MULTIVITAMINS,THERAPEUTIC TABLET PO SCH (08:59)
[2017-05-27] MEDS ORDERED: DIAZEPAM 5 MG TABLET PO SCH (09:00)
[2017-05-27] MEDS ORDERED: BUPRENORPHINE HCL 2 MG TAB.SUBL SL SCH (09:00)
[2017-05-27] MEDS: KETOROLAC TROMETHAMINE 30 MG INJ IM PRN (11:44)
--- NOTE | 2017-05-27 11:44 | NUR ---
PRN TORADOL IM Pt complaining of general body pain, abscess site pain, 04/02. PRN Toradol 30mg IM administered as ordered. Will cont to monitor effectiveness.
[2017-05-27 12:00] VITALS: BP 110/65
[2017-05-27] MEDS ORDERED: DIAZEPAM 5 MG TABLET PO ONE (12:00)
--- NOTE | 2017-05-27 12:14 | NUR ---
TORADOL REASSESSMENT Per pt Toradol effective in reducing pain, pain level reported 2/10.
--- NOTE | 2017-05-27 12:22 | NUR ---
Valium 5 mg PO x 1 given: SUZYAK 9, one time Valium 5 mg Po given at this time. Will monitor for effectiveness.
--- NOTE | 2017-05-27 13:22 | NUR ---
VALIUM REASSESSMENT Per patient, x1 dose of Valium was effective in reducing patient's withdrawal symptoms. CIWA score noted 5.
[2017-05-27] MEDS ORDERED: TRAZ-147 PO (14:50)
[2017-05-27] MEDS ORDERED: GABA-536 PO (14:50)
[2017-05-27] MEDS ORDERED: BACL20TA PO (14:50)
[2017-05-27] MEDS ORDERED: IBUP-1955 PO (14:50)
[2017-05-27] MEDS ORDERED: PRAZ1CAP2 PO (14:50)
[2017-05-27] MEDS ORDERED: HYDR-3895 PO (14:50)
[2017-05-27] MEDS ORDERED: SULF1TAB3 PO (14:50)
[2017-05-27] MEDS ORDERED: LACT1CAP57 PO (14:50)
[2017-05-27] MEDS ORDERED: DICY20TA28 PO (14:50)
[2017-05-27 16:00] VITALS: BP 104/64
--- NOTE | 2017-05-27 19:22 | NUR ---
END OF SHIFT NOTE Pt presented with anxiety, agitation, chills flushed face, runny nose. Pt was given x1 dose of Valium 5 mg effective. Pt cont on 1:1 for safety. wound treatment done on left forearm picture taken and placed in the chart. Pt cont on Po antibiotic no s/s of adverse reaction noted. Vital signs remained WNL. Encourage PO fluids as tolerated. All safety measures in place, Call light within reach. Pt endorsed to night nurse in stable condition.
[2017-05-27 20:00] VITALS: BP 105/50
--- NOTE | 2017-05-27 20:00 | NUR ---
START OF SHIFT NOTE PATIENT IN HIS ROOM, ALERT AND ORIENTED X 4. RESPIRATION EVEN AND UNLABORED. PATIENT IS ON 1:1 FOR SAFETY. PATIENT STATES HES ANXIOUS BUT STATES HE'S ALRIGHT, TOLERABLE. DENIES ANY PAIN. RECEIVED REPORT FROM DAY SHIFT NURSE. PATIENT IS A 31 YEAR OLD MALE ADMITTED FOR SUBSTANCE DEPENDENCE. PATIENT COMPLETED 5 DAY VALIUM AND 5 DAY SUBUTEX TAPER. PATIENT IS MEDICALLY CLEARED TO BE DISCHARGE TOMORROW. PATIENT WAS GIVEN PRN TORADOL AND VALIUM . PATIENT IS ON ANTIBIOTIC FOR S/P I & D . TREATMENT DONE IN AM. ON FALL/SEIZURE PRECAUTION. SAFETY MEASURES IN PLACE. CALL LIGHT IN REACH. WILL CONTINUE TO MONITOR.
[2017-05-27 21:00] VITALS: BP 105/50
[2017-05-27] MEDS: PRAZOSIN HCL 1 MG CAPSULE PO SCH (21:00)
--- NOTE | 2017-05-27 21:00 | NUR ---
MINIPRESS HELD PATIENT'S BP-105/50 AND HR 54 . MINIPRESS HELD ORDERED FOR BP LESS THAN 100/70 AND HR 70
--- NOTE | 2017-05-27 21:40 | NUR ---
PRN TRAZADONE ADMINISTRATION PATIENT REQUESTS FOR SLEEP AID. PRN TRAZADONE GIVEN. WILL MONITOR FOR EFFECTIVENESS
--- NOTE | 2017-05-27 22:45 | NUR ---
PRN TRAZADONE RE-ASSESSMENT PATIENT ASLEEP AT THIS TIME. CONTINUE ON 1:1 FOR SAFETY. WILL CONTINUE TO MONITOR
--- NOTE | 2017-05-28 | NUR ---
COWS/CIWA/VS PATIENT REFUSED VS AND TO BE WOKEN UP. COWS AND CIWA UNABLE TO ASSESS. RESPIRATION EVEN AND UNLABORED. RR 15. NO S/S OF DISTRESS. CONTINUE ON 1:1 FOR SAFETY. WILL CONTINUE TO MONITOR.
--- NOTE | 2017-05-28 04:00 | NUR ---
COWS/CIWA/VS PATIENT REFUSED VS. COWS/CIWA UNABLE TO ASSESS. RESPIRATION EVEN AND UNLABORED. RR 15. SAFETY MEASURES IN PLACE. CALL LIGHT IN REACH. WILL CONTINUE TO MONITOR.
--- NOTE | 2017-05-28 06:35 | NUR ---
DISCHARGE NOTE PATIENT LEFT IN STABLE CONDITION. PATIENT ALERT AND ORIENTED X 4. PATIENT VS BP-104/60 P-57 T-97.6 R-16 SPo2 AT 100 % IN RA. DENIES ANY PAIN. PATIENT LEFT WITH HIS BELONGINGS FROM THE UNIT AT 0635 .
== END 2017-05-28 06:35 | disposition other institution (70) | DRG 895 ==
LOC: SRC 15:16
PROVIDERS: ADMIT Internal Medicine; ATTEND Internal Medicine
PROC: HZ2ZZZZ Detoxification Services for Substance Abuse Treatment (ICD-10-PCS; principal; 2017-05-22)
PROC: HZ41ZZZ Group Counseling for Substance Abuse Treatment, Behavioral (ICD-10-PCS; 2017-05-24)
PROC: 0H9EXZZ Drainage of Left Lower Arm Skin, External Approach (ICD-10-PCS; 2017-05-26)
PROC: HZ31ZZZ Individual Counseling for Substance Abuse Treatment, Behavioral (ICD-10-PCS; 2017-05-26)
DX: F10.230 Alcohol dependence with withdrawal, uncomplicated (principal); E87.3 Alkalosis; E87.8 Other disorders of electrolyte and fluid balance, not elsewhere classified; F50.9 Eating disorder, unspecified; D50.9 Iron deficiency anemia, unspecified; F15.10 Other stimulant abuse, uncomplicated; E87.1 Hypo-osmolality and hyponatremia; F11.23 Opioid dependence with withdrawal; L02.413 Cutaneous abscess of right upper limb; L02.414 Cutaneous abscess of left upper limb; L03.113 Cellulitis of right upper limb; L03.114 Cellulitis of left upper limb; F13.230 Sedative, hypnotic or anxiolytic dependence with withdrawal, uncomplicated; B18.2 Chronic viral hepatitis C; F17.210 Nicotine dependence, cigarettes, uncomplicated; Y90.0 Blood alcohol level of less than 20 mg/100 ml; Z81.1 Family history of alcohol abuse and dependence; G47.00 Insomnia, unspecified; F41.8 Other specified anxiety disorders; S51.832S Puncture wound without foreign body of left forearm, sequela; S51.831S Puncture wound without foreign body of right forearm, sequela; X78.8XXS Intentional self-harm by other sharp object, sequela; E86.0 Dehydration; Z79.899 Other long term (current) drug therapy; R79.89 Other specified abnormal findings of blood chemistry
CPT/HCPCS: 36415; 70030-TC; 80307; 80324; 80345; 80346; 80361; 83735; 85025; 86580; 86592; 86705; 86803; 87070; 87077; 87340; 87806; G0480; J1885; J3411; J3490; Q0162

== ENCOUNTER 2017-06-13 16:20 | Emergency (ER) | payer SELFPAY ==
[~2017-06-13] VITALS: Ht 180.3 cm; Wt 59.0 kg
[~2017-06-13 16:20] MED LIST changes: +BACL20TA PO; +DICY20TA28 PO; +GABA-536 PO; +HYDR-3895 PO; -IBUP-1953 PO; +IBUP-1955 PO; +LACT1CAP57 PO; +PRAZ1CAP2 PO; -SUBOXON PO; +SULF1TAB3 PO; -TRAZ-144 PO; +TRAZ-147 PO
--- NOTE | 2017-06-13 16:33 | NUR ---
Staff member from [facility] arrived who stated arrangements were made for the pt to go to their facility from [facility] however when he went to pick the pt up he was gone. Pt agrees to go to [facility] and ambulated out of ER with steady gait.
== END 2017-06-13 16:39 | disposition home or self-care (01) ==
LOC: ER 16:21
DX: F19.10 Other psychoactive substance abuse, uncomplicated (principal); F50.9 Eating disorder, unspecified; B19.20 Unspecified viral hepatitis C without hepatic coma; F15.10 Other stimulant abuse, uncomplicated; F14.10 Cocaine abuse, uncomplicated; Z59.0 Homelessness; D50.9 Iron deficiency anemia, unspecified
CPT/HCPCS: A4663

== ENCOUNTER 2017-06-30 03:48 | Emergency (ER) | payer SELFPAY ==
[~2017-06-30] VITALS: Ht 180.3 cm; Wt 59.0 kg
--- NOTE | 2017-06-30 04:21 | NUR ---
Pt is received alert, responsive as she came in c/o lower EXT. pain after walkimg around so much that feet hurt and want to go Rehab for Detoxing as yet still using Durgs. His care continue with MD at bedside.
[2017-06-30 05:22] LABS: BASOPHILS # (AUTO) 0.2 K/uL (0.0-8.0); BASOPHILS % (AUTO) 2.5 % (0.0-2.0); EOSINOPHILS % (AUTO) 0.1 % (0.0-7.0); HEMATOCRIT 33.9 % (40-50); HEMOGLOBIN 11.2 G/DL (14.0-18.0); LYMPHOCYTES % (AUTO) 11.3 % (20.5-51.5); MEAN CORPUSCULAR HEMOGLOBIN 30.1 UUG (27.0-31.0); MEAN CORPUSCULAR HGB CONC 33 g/dL (32.0-37.0); MEAN CORPUSCULAR VOLUME 91.1 FL (82.0-92.0); MONOCYTES # (AUTO) 0.4 K/UL (0.1-1.30); MONOCYTES % (AUTO) 4.6 % (0.0-11.0); NEUTROPHILS # (AUTO) 6.9 K/UL (1.8-8.9); NEUTROPHILS % (AUTO) 81.5 % (38.5-71.5); PLATELET COUNT (AUTO) 240 K/UL (150-450); RED BLOOD CELL COUNT(AUTO) 3.72 MIL/UL (4.7-6.1); WHITE BLOOD COUNT (AUTO) 8.5 K/UL (4.0-11.2)
--- NOTE | 2017-06-30 05:35 | NUR ---
Pt is noted resting in bed as wound care is done to both feet as ordered after Mortrin 400mg po and Tylenol 500mg po . His care continue while monitor as awaits test results.
[2017-06-30 05:39] LABS: BILIRUBIN,TOTAL 0.6 mg/dL (0.2-1.0); CREATININE 0.9 mg/dL (0.6-1.3); POTASSIUM 3.4 mmol/L (3.5-5.1); TOTAL PROTEIN, SERUM 7.1 g/dL (6.4-8.2)
--- NOTE | 2017-06-30 06:38 | NUR ---
Pt is resting in bed with no s/s off distress or c/o . His care continue .
--- NOTE | 2017-06-30 07:01 | NUR ---
Pt is noted resting as report is given to the receiving nurse.
--- NOTE | 2017-06-30 07:30 | NUR ---
Patient discharged to home in stable conditon. Written and verbal after care instructions given. Patient verbalizes understanding of instructions.pt walks in steady gait, hospital coffeee and crackers provided. no sign of distress.
[2017-06-30 07:31] VITALS: BP 109/67
== END 2017-06-30 07:33 | disposition home or self-care (01) ==
LOC: ER 03:52
DX: S90.821A Blister (nonthermal), right foot, initial encounter (principal); S90.822A Blister (nonthermal), left foot, initial encounter; Z59.0 Homelessness; X58.XXXA Exposure to other specified factors, initial encounter; Y93.89 Activity, other specified; Y92.9 Unspecified place or not applicable; Y99.9 Unspecified external cause status
CPT/HCPCS: 36415; 85025; A4663

== ENCOUNTER 2018-10-12 19:48 | Inpatient (IN) | payer SELFPAY ==
[~2018-10-12] VITALS: Ht 180.3 cm; Wt 68.0 kg
[~2018-10-12 19:48] MED LIST changes: -TRAZ-147 PO; +TRAZ-214 PO
--- NOTE | 2018-10-12 20:30 | NUR ---
INTAKE ASSESSMENT BP: 102/52, HR:66, RR:18, SpO2:100% on RA, T:97.8 F Pt is stable and able to be admitted on the unit. Unit protocols regarding medications and vital signs every 4 hours were explained. Pt verbalized understanding. Will continue admission upon arrival on the unit.
--- NOTE | 2018-10-12 21:10 | NUR ---
ADMISSION NOTE Patient is a 33 year old male admitted on 10/12/2018 at 2041 to [facility] for medically supervised withdrawal from Benzos. Patient has a medical history of Hepatitis C, anxiety, and depression. The patient is awake, alert, and oriented x4 and is verbally responsive. He is unkempt and disheveled and looks older than stated age. Patient reports that he has been consuming about 16 to 18 mg of Ativan per day, 4 mg of Klonopin every morning, and 3 mg of Xanax every night. He states that he has been taking these benzos for 12 years since he was 21 years old. The patient was able to comprehend all questions and would answer appropriately, but speaks in a garbled or mumbling speech pattern. He is noted to have anxiety, tremors, restlessness, irritability, diaphoresis, nausea, fatigue, difficulty sleeping, and chills. Initial CIWA score is 19 upon admission. Patient stated that he would have little patience for a prolonged interview since he was very tired and he stated I havent slept very much for the past few days. Patient has no known allergies, is full code, and is on a regular diet. Substance Abuse History: 1) Ativan: Patient stated that he has been consuming about 16 to 18 mg of Ativan per day for the past 6 months. He stated I usually take 1 mg of Ativan every hour that Im awake and that he has been taking Ativan for 12 years since he was 21. He said that his last use was on 10/10/2018, but he was unable to mention the time or amount that he consumed. 2) Klonopin: Patient stated that he has been consuming about 4 mg of Klonopin every morning upon waking up for the past 6 months. He said he has been taking Klonopin for 12 years since he was 21. He said that his last use was on 10/10/2018, but he was unable to mention the time or amount that he consumed. 3) Xanax: Patient stated that he has been consuming about 3 mg of Xanax every night before going to bed for the past 6 months. He said that he has been taking Xanax for the past 12 years since he was 21. He said that his last use was on 10/10/2018, but he was unable to mention the time or amount that he consumed. The patient stated that he has been to a lot of other treatment facilities including [facility], but was unable to state the names of those facilities. He stated that his longest period of sobriety lasted 9 months sometime in 2006. He states that he has been throw benzo withdrawals before and his previous symptoms of withdrawals are irritability, diaphoresis, restlessness, depressive thoughts, and anxiety. He is noted to be currently experiencing all of those symptoms including tremors, nausea, fatigue, difficulty sleeping, facial grimacing, and chills. When questioned as to why he wants to get sober, he states My using has progressed so much that its not fun anymore. I want to be able to work and have healthy relationships, but I cant do any of that stuff anymore because I just get high instead. Upon questioning the effects his substance abuse habits have been having on his professional and personal life, he states They are pretty much nonexistent at this point or very strained. When asked why this admission will be different from the others, he says Im older now and Im getting more tired of the negative consequences of getting high. I dont want to tolerate this shit anymore. Patient states that he has a positive history of seizures about 1 year ago related to benzo withdrawal which occurred in a treatment facility. He also experienced several overdoses off of heroin and benzos sometime in the early . He also states that he has blackouts very often after taking Xanax. He states that his mother has a history of alcoholism. The patient is 511 and weighs 150 lbs per standing scale. Skin is dry, intact, and warm to touch. Capillary refill is <3 seconds. PERRLA is present bilaterally with pupils at 4 mm. Breathing is even and unlabored. Lungs are clear to auscultation bilaterally. Abdomen is soft and nondistended and bowel sounds are present in all 4 quadrants. Initial vital signs are as follows: BP: 102/52, HR:66, RR:18, SpO2:100% on RA, T:97.8 F Patient was provided instructions regarding unit policies and procedures. Fall and safety precautions initiated and maintained. Bed is in the lowest position with wheels locked and bilateral side rails raised. Call light is within reach. Will continue to monitor.
[2018-10-12 21:42] LABS: *URINE HCG, QUAL NEGATIVE
[2018-10-12] MEDS ORDERED: IBUPROFEN 600 MG TABLET PO PRN (21:45)
[2018-10-12] MEDS ORDERED: DIAZEPAM 10 MG TABLET PO PRN ×2 (21:45)
[2018-10-12] MEDS ORDERED: DIAZEPAM 5 MG TABLET PO PRN (21:45)
[2018-10-12] MEDS ORDERED: LOPERAMIDE HCL 2 MG CAPSULE PO PRN ×2 (21:45)
[2018-10-12] MEDS ORDERED: ACETAMINOPHEN 325 MG TABLET PO PRN (21:45)
[2018-10-12] MEDS ORDERED: ONDANSETRON 4 MG/2 ML VIAL IM PRN (21:45)
[2018-10-12] MEDS ORDERED: HYDROXYZINE PAMOATE 25 MG CAPSULE PO PRN (21:45)
[2018-10-12] MEDS ORDERED: MAG HYDROX/AL HYDROX/SIMETH 30 ML LIQUID UDC PO PRN (21:45)
[2018-10-12] MEDS ORDERED: MIRALAX 17 GM POWD.PACK PO PRN (21:45)
[2018-10-12] MEDS ORDERED: MAGNESIUM HYDROXIDE 30 ML LIQUID UDC PO PRN (21:45)
[2018-10-12] MEDS ORDERED: CLONIDINE HCL 0.1 MG TABLET PO PRN (21:45)
[2018-10-12] MEDS ORDERED: diphenhydrAMINE 50 MG CAPSULE PO PRN (21:45)
[2018-10-12] MEDS ORDERED: ONDANSETRON ODT 4 MG TAB.RAPDIS SL PRN (21:45)
[2018-10-12] MEDS ORDERED: LORAZEPAM 2 MG/1 ML VIAL IM PRN (21:45)
--- NOTE | 2018-10-12 22:00 | NUR ---
ATTEMPT TO CLARIFY HOME MEDS Attempted to clarify home medications including all meds and dosages, but patient states he does not have a prescription list with him and has difficulty remembering all specific items on his list. Patient was previously admitted to [facility] and has an existing list that may need to be updated.
[2018-10-12] MEDS ORDERED: TRAZODONE 50 MG TABLET PO ONE (22:30)
--- NOTE | 2018-10-12 22:33 | NUR ---
PRN VALIUM AND MOTRIN ADMINISTRATION Patient is noted having anxiety, restlessness, tremors, chills, cold sweats, and a headache. CIWA score is noted to be 19. PRN Valium 20 mg and Motrin 600 mg given per MD orders and patient request. Will continue to monitor and reassess for effectiveness.
--- NOTE | 2018-10-12 23:33 | NUR ---
PRN VALIUM AND MOTRIN REASSESSMENT Patient reports having relief from symptoms of withdrawal such as anxiety, tremors, diaphoresis, restlessness, and headache. PRN meds Motrin and Valium noted to be effective. Will continue to monitor.
[2018-10-13] VITALS: BP 101/55
[2018-10-13 00:14] LABS: BASOPHILS # (AUTO) 0.1 K/uL (0.0-8.0); BASOPHILS % (AUTO) 0.9 % (0.0-2.0); EOSINOPHILS % (AUTO) 0.1 % (0.0-7.0); HEMATOCRIT 28.1 % (36.7-47.1); HEMOGLOBIN 8.8 g/dL (12.5-16.3); LYMPHOCYTES # (AUTO) 1.5 K/uL (20.0-40.0); LYMPHOCYTES % (AUTO) 22.9 % (20.5-51.5); MEAN CORPUSCULAR HEMOGLOBIN 21.2 uug (23.8-33.4); MEAN CORPUSCULAR HGB CONC 31 g/dL (32.5-36.3); MEAN CORPUSCULAR VOLUME 67.6 fL (73.0-96.2); MONOCYTES # (AUTO) 0.6 K/uL (2.0-10.0); MONOCYTES % (AUTO) 9.1 % (0.0-11.0); NEUTROPHILS # (AUTO) 4.5 K/uL (1.8-8.9); PLATELET COUNT (AUTO) 316 K/uL (152-348); RED BLOOD CELL COUNT(AUTO) 4.15 MIL/uL (4.06-5.63); WHITE BLOOD COUNT (AUTO) 6.7 K/uL (3.6-10.2)
[2018-10-13 00:26] LABS: ALANINE AMINOTRANSFERASE 56 U/L (16-63); ALKALINE PHOSPHATASE 87 U/L (50-136); ASPARTATE AMINOTRANSFERASE 31 U/L (15-37); BILIRUBIN,TOTAL 0.3 mg/dL (0.2-1.0); CARBON DIOXIDE 30 mmol/L (21-32); CHLORIDE 101 mmol/L (98-107); CREATININE 1.1 mg/dL (0.6-1.3); GLUCOSE 86 mg/dL (74-106); MAGNESIUM 2.2 mg/dL (1.8-2.4); POTASSIUM 3.3 mmol/L (3.5-5.1); TOTAL PROTEIN, SERUM 7.8 g/dL (6.4-8.2); UREA NITROGEN, BLOOD 18 mg/dL (7-18)
[2018-10-13 00:32] LABS: THYROID STIMULATING HORMONE 0.638 mIU/mL (0.358-3.740)
[2018-10-13 00:47] LABS: ETHANOL < 3 MG/DL (0-0)
[2018-10-13 01:36] LABS: *AMPHETAMINE, URINE POSITIVE (NEGATIVE); *BARBITURATE, URINE POSITIVE (NEGATIVE); *CANNABINOID, URINE NEGATIVE (NEGATIVE); *COCCAINE, URINE POSITIVE (NEGATIVE); *OPIATE, URINE NEGATIVE (NEGATIVE); *PHENCYCLIDINE SCREEN,URINE NEGATIVE (NEGATIVE)
[2018-10-13 04:00] VITALS: BP 95/59
[2018-10-13] MEDS ORDERED: POTASSIUM CHLORIDE 20 MEQ TAB.PRT.SR PO ONE (04:00)
[2018-10-13 04:34] LABS: LYMPHOCYTES % (MANUAL) 25 % (20-40); MONOCYTES % (MANUAL) 5 % (2-10); NEUTROPHILS % (MANUAL) 70 % (42-75)
[2018-10-13] MEDS ORDERED: TRAZ-214 PO (05:46)
[2018-10-13] MEDS ORDERED: OMEP20CA10 PO (05:47)
[2018-10-13] MEDS ORDERED: FLUO40CA8 PO (05:48)
--- NOTE | 2018-10-13 07:16 | NUR ---
END OF SHIFT Patient is a newly admitted 33 year old male admitted for benzo withdrawals with secondary diagnoses of hepatitis C, anxiety, and depression. During the shift, the patient remained compliant with therapeutic plan, but stated that he was too tired to give a complete and comprehensive interview in one sitting. Clarification was provided sporadically throughout the shift. Urine sample was provided at intake and blood draw as done. K+ was noted to be low at 3.3 and was replaced with 40mEq at 0400. Patient was given Valium 20 mg for withdrawal symptoms and a CIWA score of 19 and was effective. Patient was also given Motrin 600 mg for a headache and was also effective. Patient slept for about 7 hours during the shift. Last CIWA score is 18. Patient is noted lying in bed with eyes closed and even unlabored respirations. HOB is flat and bilateral side rails raised for safety. Call light is functional and within reach. Will continue to monitor.
[2018-10-13 08:00] VITALS: BP 99/65
--- NOTE | 2018-10-13 08:02 | NUR ---
START OF SHIFT: Received pt laying in bed with eyes closed and respirations even and unlabored. Easily awoken pt asks' Pleas let me sleep a little longer,I didn't sleep well last night. Will assess and medicate before 10 am. Call blanc in reach. Bed locked and low. Will continue to monitor.
[2018-10-13] MEDS ORDERED: TUBERCULIN,PURIF.PROT.DERIV. 5 TU/0.1 ML TEST ID ONE (09:00)
[2018-10-13] MEDS: MULTIVITAMINS,THERAPEUTIC TABLET PO SCH (09:53)
--- NOTE | 2018-10-13 09:55 | NUR ---
Pt is A/O X 4. He presents with anxious mood and congruent affect. He is disheveled with stains all over his clothing and dirty fingernails. His skin is clammy. He reports anxiety,restlessness and irritability. CIWA 11. PRN Valium 10 mg PO given to manage symptoms of withdrawal. He refused PPD. Encouraged increased fluids to assist in facilitating detox process.Will continue to monitor and offer support.
--- NOTE | 2018-10-13 10:55 | NUR ---
PRN Valium effective aeb CIWA 9. Will continue to monitor and offer support.
[2018-10-13] MEDS: FLUOXETINE HCL 20 MG CAPSULE PO SCH (11:47)
[2018-10-13 12:00] VITALS: BP 95/60
[2018-10-13] MEDS ORDERED: 5 DAY TAPER VALIUM-SERENITY PROTOCOL PO PRN (12:15)
[2018-10-13] MEDS: DIAZEPAM 10 MG TABLET PO SCH ×3 (12:41→20:49)
[2018-10-13 16:00] VITALS: BP 112/64
--- NOTE | 2018-10-13 18:45 | NUR ---
END OF SHIFT: Pt started on Valium taper to manage s/s of w/d which include anxiety,sweats,restlessness,fatigue and irritability. Last CIWA 10.PRN Valium given prior to taper starting. he states the detox meds are effective. He continues to present disheveled and did shower today. He was compliant with increased fluids and was observed interacting with peers. Will pass shift report to oncoming night nurse.
--- NOTE | 2018-10-13 19:30 | NUR ---
START OF SHIFT Received patient awake, alert, oriented x4 sitting up in bed watching TV. Patient is a 33 year old male admitted for benzo withdrawals with secondary diagnoses of hepatitis C, anxiety, and depression. Per endorsement, patient was given PRN Valium for an increased CIWA score of 11. Patient was encouraged to increase fluid intake to improve detox process. Upon assessment, patient reported feeling anxious and restless and denies pain. No PRNs requested at this time. Last CIWA score is 10. Call light in reach. Bed is in a low position with wheels locked. All safety measures in place. Will continue to monitor.
[2018-10-13 20:07] VITALS: BP 96/53
[2018-10-13] MEDS: TRAZODONE 100 MG TABLET PO SCH (20:49)
--- NOTE | 2018-10-14 00:05 | NUR ---
VITAL SIGNS REFUSED Patient is noted lying in bed with eyes closed and even, unlabored respirations. Vital sign assessment refused. HOB flat and bilateral side rails raised. Call light within reach. Will continue to monitor.
[2018-10-14] MEDS: PANTOPRAZOLE SODIUM 40 MG TABLET.DR PO SCH (06:43)
--- NOTE | 2018-10-14 07:17 | NUR ---
END OF SHIFT Patient is noted lying in bed with eyes closed and even, unlabored respirations. Patient slept for most of the shift and stayed in his room. No negative symptoms were reported and no PRNs were reported. Encouraged patient to increase intake of fluids and reduce sugar intake. He slept for about 8 hours during the night. Last CIWA score is 9. Call light functional and within reach. HOB flat and bilateral side rails raised. Seizure and fall precautions maintained. Endorsed to oncoming AM nurse.
--- NOTE | 2018-10-14 07:40 | NUR ---
START OF SHIFT Endorse rcvd from ongoing nurse, client is in bed, Lying on his L side, head of bed elevated, client sounds asleep, easy to awake, RR 16, even, non-labored. Client is on 2nd of 5 day Valium taper, last CIWA 9 @ 1999. Client had an uneventful night, he is been sleeping for 8 hrs. Seizure precautions. Bed in lowest/locked position. Side rails x 2 up/padded. Call light within reach.
[2018-10-14 08:55] VITALS: BP 115/64
[2018-10-14] MEDS ORDERED: Medication Not On Formulary EA (Omeprazole 1 CAP) PO SCH (09:00)
[2018-10-14 09:24] LABS: CREATININE 1.2 mg/dL (0.6-1.3); MAGNESIUM 2.3 mg/dL (1.8-2.4)
[2018-10-14 09:33] LABS: POTASSIUM 2.6 mmol/L (3.5-5.1)
[2018-10-14 09:45] LABS: BASOPHILS # (AUTO) 0.1 K/uL (0.0-8.0); HEMOGLOBIN 8.8 g/dL (12.5-16.3)
--- NOTE | 2018-10-14 09:50 | NUR ---
Critical Value Potassium 2.6. Client denies heart palpitations, breathing difficulties, weakness, muscle cramps, or muscle spasms. Will continue to monitor. NNO from
[2018-10-14] MEDS: MULTIVITAMINS,THERAPEUTIC TABLET PO SCH (09:55)
[2018-10-14] MEDS: DIAZEPAM 5 MG TABLET PO SCH ×4 (09:55→20:34)
[2018-10-14] MEDS: FLUOXETINE HCL 20 MG CAPSULE PO SCH (09:55)
--- NOTE | 2018-10-14 09:55 | NUR ---
CIWA 15 Client is sitting at the edge of bed, he appears with anxious mood, depressed, flat affect, avoidant gaze, tremors, clammy skin. Client appears disheveled, stained clothes, R hand fingernails with stains. Client reports anxiety, depression, and fatigue. Encourage client to increase PO fluid intake as tolerated to facilitate detox. Schedule Valium 10mg PO administered.
--- NOTE | 2018-10-14 10:00 | NUR ---
Nursing Note Client's bathroom is unkept, there are towels behind the toilet, toilet and sink appear to be splashed with masticated food, production underwriter cleaned area. Client has placed his breakfast tray in his drawer, several bags of chips and cookies were found in the drawer as well. Encourage client to eat his breakfast tray within the hour of arrival and to not place in the drawer. CN notified.
[2018-10-14 10:02] LABS: BASOPHILS % (AUTO) 1.4 % (0.0-2.0); EOSINOPHILS % (AUTO) 0.3 % (0.0-7.0); HEMATOCRIT 27.9 % (36.7-47.1); LYMPHOCYTES # (AUTO) 1.6 K/uL (20.0-40.0); MEAN CORPUSCULAR HEMOGLOBIN 21.5 uug (23.8-33.4); MEAN CORPUSCULAR HGB CONC 32 g/dL (32.5-36.3); MEAN CORPUSCULAR VOLUME 68.4 fL (73.0-96.2); MONOCYTES # (AUTO) 0.7 K/uL (2.0-10.0); MONOCYTES % (AUTO) 13.1 % (0.0-11.0); NEUTROPHILS # (AUTO) 2.6 K/uL (1.8-8.9); NEUTROPHILS % (AUTO) 53.2 % (38.5-71.5); PLATELET COUNT (AUTO) 271 K/uL (152-348); RED BLOOD CELL COUNT(AUTO) 4.07 MIL/uL (4.06-5.63)
--- NOTE | 2018-10-14 10:28 | NUR ---
Therapist prompter client to attend group therapy.
--- NOTE | 2018-10-14 10:30 | NUR ---
Encourage client to eat small amounts of food and to not be in his room after meals, but socialize with peers or walk along the hallway as to prevent purging of his meals, client stated, "I don't know what you are talking about, I don't do that." Additional education required.
--- NOTE | 2018-10-14 11:00 | NUR ---
MD Bonner will enter order for Critical Value Potassium 2.6
[2018-10-14] MEDS ORDERED: POTASSIUM CHLORIDE 20 MEQ TAB.PRT.SR PO ONE ×2 (11:30→19:45)
--- NOTE | 2018-10-14 11:41 | NUR ---
K-Dur 40mEq PO administered. EKG ordered for Hypokalemia
[2018-10-14 12:06] LABS: HEPATITIS B SURFACE AG Negative (Negative)
--- NOTE | 2018-10-14 12:10 | NUR ---
CIWA 14 Client presents with anxiety, agitation, depression, emotional volatility, tremors, clammy skin, and difficulty concentrating. Client reports poor appetite, nausea, sweats, depression, anxiety, and fatigue. Schedule Valium 5mg PO administered. Call light within reach.
[2018-10-14 12:30] VITALS: BP 103/58
[2018-10-14 16:55] VITALS: BP 104/57
[2018-10-14 18:09] LABS: CREATININE 1.2 mg/dL (0.6-1.3); MAGNESIUM 2.1 mg/dL (1.8-2.4); POTASSIUM 3.1 mmol/L (3.5-5.1)
--- NOTE | 2018-10-14 19:25 | NUR ---
END OF SHIFT Endorse client to incoming nurse, client is in room, a/o x 4, fully ambulatory, Client to present with anxiety, agitation, depression, emotional volatility, tremors, clammy skin, and difficulty concentrating. Client is on 2nd of 5 day Valium taper, last CIWA 14 @ 1600. Client is compliant with group therapy. Adequate PO fluid intake 2481mL, void x 5. Consumes 75-100% of meals. Seizure precautions. Bed in lowest/locked position. Call light within reach.
[2018-10-14 20:00] VITALS: BP 104/48
--- NOTE | 2018-10-14 20:00 | NUR ---
Start of Shift Patient is noted to be in depressed mood, avoidant with conversation and avoids eye contact. Patient appears disheveled and unkempt. Patients room smells of strong body odor and leftover food. His shirt is noted to have food and fluid stains. He has dirty fingernails and is anhedonic. Encouraged patient to shower and was educated regarding the importance of maintaining a proper hygiene. Patient also observed to have bilateral hand tremors and c/o intermittent nausea. Fall, universal, seizure and safety prec in place. Call light within reach. Last CIWA=12. Will continue to monitor
[2018-10-14] MEDS: TRAZODONE 100 MG TABLET PO SCH (20:34)
--- NOTE | 2018-10-15 | NUR ---
SUZYWA Deferred Patient asleep on bed, with no SOB nor facial grimacing noted. LUIZA deferred per MD order.
--- NOTE | 2018-10-15 04:00 | NUR ---
CIWA Deferred Patient asleep on bed, with no SOB nor facial grimacing noted. CIWA deferred per MD order. RR=14.
[2018-10-15] MEDS: PANTOPRAZOLE SODIUM 40 MG TABLET.DR PO SCH (06:22)
--- NOTE | 2018-10-15 07:25 | NUR ---
End of Shift Patient appears guarded and continues to be melancholic and withdrawn. He continues to be avoidant with conversation and has hypoactive body movements. Patient is disheveled, unkempt and verbalized intermittent nausea and anxiety. Patient is also noted to have bilateral hand tremors. Patient was instructed to adhere to the diet order and at least finish 75% of diet served. Fall, universal, seizure and safety prec in place. Call light within reach. Last CIWA=12 and slept for 8 hours. Endorsed to AM shift nurse for continuity of care.
[2018-10-15 08:00] VITALS: BP 95/65
[2018-10-15] MEDS: MULTIVITAMINS,THERAPEUTIC TABLET PO SCH (09:03)
[2018-10-15] MEDS: DIAZEPAM 5 MG TABLET PO SCH ×3 (09:03→21:23)
[2018-10-15] MEDS: FLUOXETINE HCL 20 MG CAPSULE PO SCH (09:04)
[2018-10-15 09:05] LABS: MAGNESIUM 2.2 mg/dL (1.8-2.4); POTASSIUM 3.3 mmol/L (3.5-5.1)
--- NOTE | 2018-10-15 10:05 | NUR ---
START OF SHIFT: Pt is A/O X 4. He presents with anxious mood and congruent affect. He is disheveled. Poor hygiene noted. He reports anxiety,and irritability. CIWA 8. Pt has a history of eating disorder and was caught hoarding food in his room. He is to be supervised during meals and an hour after meals.Regular room searches to be done. Snacks are to be limited. Offered support and educated Pt that we are here to help him and support him . Will continue to monitor. Addendum: 10/15/18 at 1016 by ROSE MARY COBOS RN CORRECTION: start of shift at 0820
[2018-10-15 12:00] VITALS: BP 104/60
--- NOTE | 2018-10-15 13:00 | NUR ---
Nursing note The patient entered the kitchen/snack room although there is a sign posted on the door that explains that all patients must ask staff for assistance in the kitchen. He filled his pockets with several packs of cookies. A staff member intervened and asked that the patient give all but one back. Pt complied.
[2018-10-15] MEDS ORDERED: POTASSIUM CHLORIDE 20 MEQ TAB.PRT.SR PO ONE (13:45)
--- NOTE | 2018-10-15 15:30 | NUR ---
Nursing Note During a group meeting the pt asked another pt to get a snack out of the kitchen for him without informing staff that it was for him. Both patient's were educated that snacks should only be requested by the individual that wants them.
[2018-10-15 16:00] VITALS: BP 100/52
--- NOTE | 2018-10-15 19:08 | NUR ---
END OF SHIFT: Pt continues on Valium taper to manage s/s of w/d which include anxiety ,restlessness and irritability. Last CIWA 9. Strong limits set on trips to snack room and permission must be granted by nurse for snacks.Emesis also seen in toilet this afternoon. He denies vomiting today. He displays inappropriate behavior and was by sneaking into snack room unsupervised after being educated on rules and limits. He is on 1:1 observation during and after snacks and during and after meals. Psych MD assessed Pt and increased Prozac dose. Will pass shift report to oncoming night nurse.
[2018-10-15 20:00] VITALS: BP 101/48
--- NOTE | 2018-10-15 20:00 | NUR ---
Start of Shift Patient appears guarded, anxious and withdrawn. He is noted to be avoidant with conversation and avoids eye contact as well. Patient was noted to have multiple candy and chip wrappers in his drawer. He is also noted to be disheveled and unkempt, with pieces of clothing scattered on the floor. Patient noted to be hoarding candies, chips and sandwiches in his drawer. Patient was educated against hoarding food and adhering to unit policy. Patient is also noted to have bilateral hand tremors. Patient is also observed to be in depressed mood. No suicidal nor homicidal ideation at this time. Fall, universal, seizure and safety prec in place. Call light within reach. Last CIWA=8. Will continue to monitor.
[2018-10-15] MEDS: TRAZODONE 100 MG TABLET PO SCH (21:23)
[2018-10-16] VITALS (7 sets, daily range): BP systolic 76–110; BP diastolic 38–57
--- NOTE | 2018-10-16 | NUR ---
CIWA Deferred Patient asleep on bed, with no SOB nor facial grimacing noted. CIWA deferred per MD order. RR=15.
--- NOTE | 2018-10-16 04:00 | NUR ---
CIWA Deferred Patient asleep on bed, with no SOB nor facial grimacing noted. RR=14. CIWA deferred per MD order.
[2018-10-16] MEDS: PANTOPRAZOLE SODIUM 40 MG TABLET.DR PO SCH (06:27)
--- NOTE | 2018-10-16 07:16 | NUR ---
End of Shift Patient continues to be withdrawn and guarded. He was educated regarding proper hygiene and was instructed on the risks of binging and purging. Patient denied the act of binging and purging despite evidence that points to it. Patient is easily agitated when being educated regarding adherence to a proper dietary regimen. He continues to be disheveled and unkempt. He is aware that his food intake is being monitored and acknowledged it. Patient continues to have bilateral hand tremors and has a sad demeanor. No suicidal ideation reported. No PRNs administered during the shift. Fall, universal, seizure and safety prec in place. Call light within reach. Last CIWA=8 and slept for 9 hours. Endorsed to AM shift nurse for continuity of care.
--- NOTE | 2018-10-16 07:30 | NUR ---
START OF SHIFT Pt 33 y/o male admitted for substance abuse disorder. Pt received in room on bed with eyes closed resting, but arousable to name. Pt alert and oriented to name, place, and time. Perrla. Skin warm and moist to touch. Respirations even and unlabored. Appear disheveled. Clothes scattered throughout the room. Encouraged to maintain hygiene. Anxious. Pressured speech. Irritable. Fidgety. Bilateral hand tremors. Complaints of generalized discomfort. It was reported that pt slept for 9 hours last night. Pt is on a 5 day valium taper and is on day 4. Bed on lowest position with side rails x2 up for safety. Call light within reach.
[2018-10-16 08:01] LABS: BASOPHILS % (AUTO) 0.6 % (0.0-2.0); EOSINOPHILS % (AUTO) 0.1 % (0.0-7.0); HEMATOCRIT 28.7 % (36.7-47.1); HEMOGLOBIN 8.9 g/dL (12.5-16.3); LYMPHOCYTES # (AUTO) 1.7 K/uL (20.0-40.0); LYMPHOCYTES % (AUTO) 31.8 % (20.5-51.5); MEAN CORPUSCULAR HEMOGLOBIN 21.8 uug (23.8-33.4); MEAN CORPUSCULAR HGB CONC 31 g/dL (32.5-36.3); MEAN CORPUSCULAR VOLUME 70.1 fL (73.0-96.2); MONOCYTES # (AUTO) 0.6 K/uL (2.0-10.0); MONOCYTES % (AUTO) 10.8 % (0.0-11.0); NEUTROPHILS % (AUTO) 56.7 % (38.5-71.5); PLATELET COUNT (AUTO) 256 K/uL (152-348); WHITE BLOOD COUNT (AUTO) 5.2 K/uL (3.6-10.2)
[2018-10-16 08:17] LABS: BILIRUBIN,TOTAL 0.1 mg/dL (0.2-1.0); MAGNESIUM 2.2 mg/dL (1.8-2.4); TOTAL PROTEIN, SERUM 6.8 g/dL (6.4-8.2)
[2018-10-16] MEDS: FLUOXETINE HCL 20 MG CAPSULE PO SCH (09:45)
[2018-10-16] MEDS: MULTIVITAMINS,THERAPEUTIC TABLET PO SCH (09:45)
[2018-10-16] MEDS: DIAZEPAM 5 MG TABLET PO SCH ×2 (10:14→20:40)
--- NOTE | 2018-10-16 11:34 | NUR ---
PRN MALOOX Pt with c/o heartburn. Maloox prn per MD order given.
[2018-10-16] MEDS ORDERED: POTASSIUM CHLORIDE 20 MEQ TAB.PRT.SR PO ONE ×2 (11:45→22:15)
--- NOTE | 2018-10-16 11:53 | NUR ---
POTASSIUM k+=3.0. MD aware and with new order, K-dur 40 mEq po x1 carried out.
--- NOTE | 2018-10-16 12:13 | NUR ---
RT prompted pt to attend rec groups.
--- NOTE | 2018-10-16 12:34 | NUR ---
PRN MALOOX EVAL Pt states medication effective.
--- NOTE | 2018-10-16 18:00 | NUR ---
BEHAVIOR Pt observed sneaking into kitchen and grabbing handful amounts of snacks and shoving it done in his pants, after educating pt to do that. Pt refusing to return all items taken and goes back to room.
[2018-10-16 18:20] LABS: POTASSIUM 3.1 mmol/L (3.5-5.1)
--- NOTE | 2018-10-16 19:07 | NUR ---
END OF SHIFT Pt 33 y/o male admitted for substance abuse disorder. Pt alert and oriented to name, place, and time. Perrla. Skin warm and moist to touch. Respirations even and unlabored. Appears disheveled. Clothes scattered throughout the room. Encouraged to maintain hygiene. Anxious and restless. Irritable. Pressured speech. Bilateral hand tremors noted. Fidgety. Complaints of generalized discomfort. Last ciwa=12@1600. Pt did not attend group activity today. Pt is on 5 day valium taper and is on day 4. Bed on lowest position with side rails x 2up for safety. Call light within reach.
--- NOTE | 2018-10-16 19:30 | NUR ---
START OF SHIFT Received patient awake, alert, and oriented x4 sitting up in bed. Patient is a 33 year old male admitted for medically supervised detox from [facility] with secondary diagnoses of hepatitis C, anxiety, depression, anorexia, and bulimia. Per endorsement, patient was noted with a low potassium level and was supplemented. Patient was also noted with behavioral issues of sneaking food into his room without permission. PRN Maalox given my AM shift and was effective. Upon assessment, patient was noted sitting up in bed watching TV and he denies pain, discomfort, and other issues. Last CIWA score noted at 12. HOB and bilateral side rails raised. Call light functional and within reach. Will continue to monitor closely.
[2018-10-16] MEDS: TRAZODONE 100 MG TABLET PO SCH (20:40)
--- NOTE | 2018-10-17 | NUR ---
VITAL SIGNS REFUSED Patient is noted lying in bed with eyes closed and even, unlabored respirations. Vital signs refused. All safety measures in place and call light within reach. Will continue to monitor.
[2018-10-17] MEDS: PANTOPRAZOLE SODIUM 40 MG TABLET.DR PO SCH (07:01)
--- NOTE | 2018-10-17 07:30 | NUR ---
START OF SHIFT Pt 33 y/o male admitted for substance abuse disorder. Pt received in room on bed with eyes closed resting but arousable to name. Alert and oriented to name, place, and time. Perrla. Skin warm and moist to touch. Respirations even and unlabored. Appears disheveled. Clothes scattered throughout the room. Encouraged to maintain hygiene. Anxious and restless. Pressured speech. Bilateral hand tremors noted. Intermittent perspiration. Complaints of generalized body aches. Complaints of generalized discomfort. It was reported that pt slept for 7 hours last night. Pt is on a 5 day valium taper and is on day 5. Bed on lowest position with side rails x2 up for safety. Call light within reach.
--- NOTE | 2018-10-17 07:36 | NUR ---
END OF SHIFT Patient is a 33 year old male admitted for medically supervised detox from [facility] with secondary diagnoses of hepatitis C, anxiety, depression, anorexia, and bulimia. During the shift, the patient made no complaints of pain or distress and did not request any PRNs. Patients potassium level was low and order for potassium replacement was carried out with 40 mEqs at 2044. Patient slept for about 7 hours during the night. Last CIWA is 10. Endorsed to oncoming AM nurse.
[2018-10-17 07:58] LABS: POTASSIUM 3.5 mmol/L (3.5-5.1)
[2018-10-17 08:00] VITALS: BP 83/36
[2018-10-17 09:00] VITALS: BP 100/61
[2018-10-17] MEDS ORDERED: DIAZEPAM 5 MG TABLET PO SCH (09:00)
[2018-10-17] MEDS: FLUOXETINE HCL 20 MG CAPSULE PO SCH (09:25)
[2018-10-17] MEDS: MULTIVITAMINS,THERAPEUTIC TABLET PO SCH (09:26)
[2018-10-17 12:00] VITALS: BP 106/64
[2018-10-17] MEDS ORDERED: TRAZ-214 PO (13:13)
[2018-10-17] MEDS ORDERED: HYDR-3895 PO (13:13)
[2018-10-17] MEDS ORDERED: FLUO-120 PO (13:13)
[2018-10-17] MEDS ORDERED: OMEP20CA10 PO (13:13)
[2018-10-17 16:00] VITALS: BP 95/48
--- NOTE | 2018-10-17 16:50 | NUR ---
BEHAVIOR Pt walking back to room from recreation room with wrapping paper noises heard while walking. Alot of ice ream (a variety of about 8-10 different ice creams) found under pt's pillow in room. Empty drink bottles scattered throughout the room. Pt states, " you know, I can just walk into the kitchen and get anything I want and you can't do anything!".
--- NOTE | 2018-10-17 19:08 | NUR ---
END OF SHIFT Pt 33 y/o male admitted for substance abuse disorder. Pt alert and oriented to name, place, and time. Perrla. Skin warm and moist to touch. Respirations even and unlabored. Disheveled and unkempt. Clothes scattered throughout the room. Encouraged to maintain hygiene. Anxious and restless. Irritable. Pressured speech. Bilateral hand tremors noted. Fidgety. Agitated and irritable. Intrusive. Hard to redirect. Complaints of generalized discomfort. Last ciwa=10 @1600. Pt selective with group activity today. Pt is on 5 day valium taper and is on day 5. Bed on lowest position with side rails x 2up for safety. Call light within reach.
--- NOTE | 2018-10-17 19:35 | NUR ---
START OF SHIFT Patient is a 33-year-old male admitted on 10/12/18 for benzodiazepine withdrawal. Patient has completed a 5-day Valium taper today, scheduled for discharge tomorrow however the discharge is currently pending. Patients last CIWA was 10 per endorsement. Patient received no PRN medications today. Upon assessment, patient had recently asked a POLITICAL SCIENTIST for a sandwich at change of shift. Patient requested more food from primary nurse and is preoccupied with thoughts of eating and drinking. Patient displays manipulative behavior, asking several different staff members or even clients to share food with him after being told that he is limited to food and drink due to his habit of binging and purging. Patient becomes visibly frustrated and agitated when reminded of instruction. Patient is anxious and restless. Patient is on fall and seizure precautions with history of seizure related to withdrawal, most recently in 2018. Safety measures in place, side rails up x2, bed locked in low position, call light within reach. Patient is supervised after meals for 1 hour to monitor for purging. Will continue to monitor.
[2018-10-17 20:00] VITALS: BP 106/40
--- NOTE | 2018-10-17 21:03 | NUR ---
BEHAVIORAL NOTE Patient has become increasingly agitated that food and beverage had been limited, based on day's total intake. Patient demanded "another sandwich" and primary nurse reminded patient that he had already eaten three sandwiches since change of shift (one approved by day nurse and two after shift change.) Patient denied having had 3 sandwiches and when confronted with the fact that he had 100% of his dinner as well, patient stated, "I will not be told 'no.'" Primary nurse and charge nurse instructed patient that this would be the last snack for the night and that a 1:1 would be assigned for the time of consumption and one hour after. Patient verbalized understanding to instructions. Safety measures in place, call light within reach. SUPERVISOR CURING ROOM at bedside. Will continue to monitor.
[2018-10-17] MEDS: TRAZODONE 100 MG TABLET PO SCH (21:07)
--- NOTE | 2018-10-18 | NUR ---
VITALS REFUSED Patient refused vitals at midnight; respirations even and unlabored, 18/min. Safety measures in place, side rails up x2, bed locked in low position, call light within reach. Will continue to monitor.
--- NOTE | 2018-10-18 04:00 | NUR ---
VITALS REFUSED Patient refused vitals again at 0400; respirations even and unlabored at this time, 16/min. Safety measures in place, side rails up x2, bed locked in low position, call light within reach. Will continue to monitor.
--- NOTE | 2018-10-18 07:09 | NUR ---
END OF SHIFT Patient is a 33-year-old male admitted on 10/12/18 for benzodiazepine withdrawal. Patient has completed a 5-day Valium taper yesterday with discharge scheduled for today pending. Patients last CIWA was 10. Patient received no PRN medications during the shift. Patient slept for 8 hrs, total intake of 500mL, void x 1, stool x 0. Patient is difficult to redirect, is uncooperative despite multiple reminders of unit policies and procedures, and continue to display manipulative behavior. Patient is on fall and seizure precautions with history of seizure related to withdrawal, most recently in 2018. Safety measures in place, side rails up x2, bed locked in low position, call light within reach. Patient is supervised after meals for 1 hour to monitor for purging. Will endorse to day shift.
--- NOTE | 2018-10-18 07:10 | NUR ---
Start of Shift Notes: Received endorsement from night nurse. Patient is a 33 year old male admitted for BZO withdrawal who was placed on a 5-day Valium taper and completed his taper. Patient will be discharging today. Per night report, patient is on close monitoring of his food intake due to hx of binging and purging. Patient tends to lennox food in his room. Per night report, patient was not given any PRNs in the AM. Last CIWA 10 and slept for 8 hours. Received patient in his room. Alert and verbally responsive. Oriented x 4. Denies S/I or H/I. No AV hallucinations noted. Patient appears anxious, affect is flat. He is noted with restlessness, pacing in his room and complains of racing thoughts. Educated patient on the discharge process. He verbalized good understanding. All needs met and attended. Will continue to monitor.
[2018-10-18] MEDS: PANTOPRAZOLE SODIUM 40 MG TABLET.DR PO SCH (07:22)
[2018-10-18 08:00] VITALS: BP 91/37
[2018-10-18] MEDS: MULTIVITAMINS,THERAPEUTIC TABLET PO SCH (08:53)
[2018-10-18] MEDS: FLUOXETINE HCL 20 MG CAPSULE PO SCH (08:53)
--- NOTE | 2018-10-18 08:53 | NUR ---
Vistaril 50 mg PO given: Vistaril 50 mg PO given as ordered. Patient was noted with increased anxiety, pacing in the hallways and into his room. Non-pharmacological interventions provided but ineffective. Will monitor for effectiveness.
--- NOTE | 2018-10-18 09:53 | NUR ---
Re-assessment: Vistaril Patient appears more calm at this time. He states that he would like to go smoke. He reports that PRN Vistaril was effective in reducing his anxiety.
[2018-10-18 12:00] VITALS: BP 94/54
[2018-10-18 16:00] VITALS: BP 108/66
--- NOTE | 2018-10-18 19:02 | NUR ---
End of Shift Notes: Patient completed his 5-day Valium taper yesterday and is on close monitoring today. DC still pending at this time. VS monitored closely. Noted with decreased blood pressure in the AM while patient was asleep. No changes in LOC noted. Withdrawal symptoms were closely monitored. Initial CIWA 12, patient presented with gross tremors, anxiety, agitation, pacing, restlessness, and generalized discomfort. Medicated patient with Vistaril 50 mg PO as ordered for anxiety with help. Last CIWA 10. Patients food intake closely monitored throughout the day. He requires constant redirection and education of his meal intake for the day. He requests for extra food from staff members and becomes upset when he is told that his food intake is limited. He is kept on 1:1 one hour after meals for closer supervision. All needs met and attended. Will continue to monitor closely.
--- NOTE | 2018-10-18 19:47 | NUR ---
START OF SHIFT NOTE Rcvd report from outgoing nurse. Pt is a 33 y/o male A/O to person, place, time, and purpose. Pt was admitted for medically supervised withdrawal from Benzodiazepines. Pt completed a 5 day Valium taper and is scheduled for discharge on 10/19. Pt has been presenting w/anxiety, depressed mood, flat affect, and flushing. Pt is being monitored after meals and for food intake due to purging and hoarding of food. Pt rcvd PRN Vistaril and was noted effective by outgoing nurse. Last CIWA 10 @ 1600. Call light is within reach. Pt will continue to be monitored and needs met.
[2018-10-18 20:00] VITALS: BP 106/56
[2018-10-18] MEDS: TRAZODONE 100 MG TABLET PO SCH (21:20)
--- NOTE | 2018-10-19 | NUR ---
CIWA DEFERRED. V/S REFUSED Pt is in bed w/ his eyes closed. Pt's respirations are unlabored and even.
--- NOTE | 2018-10-19 04:00 | NUR ---
CIWA DEFERRED. V/S REFUSED Pt is in bed w/ his eyes closed. Pt's respirations are unlabored and even.
[2018-10-19] MEDS: PANTOPRAZOLE SODIUM 40 MG TABLET.DR PO SCH (07:07)
--- NOTE | 2018-10-19 07:24 | NUR ---
END OF SHIFT NOTE Endorsed pt to oncoming nurse. Pt is a 33 y/o male A/O to person, place, time, and purpose. Pt was admitted for medically supervised withdrawal from Benzodiazepines. Pt completed a 5 day Valium taper and is scheduled for discharge on 10/19. Pt continued presenting w/anxiety, depressed mood, flat affect, and flushing. Pt continued to be monitored after meals and for food intake due to purging and hoarding of food. Pt denies any S/I or H/I. No PRN medications were given during current shift. Pts fluid intake was 547 ml and he slept for 7.5hrs. Last CIWA 10 @ 2000. Call light is within reach.
--- NOTE | 2018-10-19 07:30 | NUR ---
START OF SHIFT Endorse rcvd from ongoing nurse, client is in bed, lying on his L side, he sounds asleep, easy to awake, RR 16, even, non-labored. Room noted with scattered clothes, food wraps, and juice bottles on the floor. Client is schedule for discharge this am. Client completed 5 day Valium taper 10/13-10/17/18. Last CIWA 10 @ 1999. Client has been sleeping for 7.5 hrs. [place]/seizure precautions. Side rails x 2 up/padded. Call light within reach.
[2018-10-19 08:07] VITALS: BP 98/59
[2018-10-19] MEDS: FLUOXETINE HCL 20 MG CAPSULE PO SCH (09:35)
[2018-10-19] MEDS: MULTIVITAMINS,THERAPEUTIC TABLET PO SCH (09:35)
--- NOTE | 2018-10-19 12:27 | NUR ---
Discharge Note Client discharged in stable condition with all valuable, belongings and prescription (x 2). Client denies SI/HI. Client left accompanied by Timmy Boothe via private car.
== END 2018-10-19 12:27 | disposition other institution (70) | DRG 895 ==
LOC: SRC 19:48
PROVIDERS: ADMIT Family Medicine Addiction Medicine; ATTEND Family Medicine Addiction Medicine
PROC: HZ2ZZZZ Detoxification Services for Substance Abuse Treatment (ICD-10-PCS; principal; 2018-10-12)
PROC: HZ41ZZZ Group Counseling for Substance Abuse Treatment, Behavioral (ICD-10-PCS; 2018-10-14)
PROC: HZ31ZZZ Individual Counseling for Substance Abuse Treatment, Behavioral (ICD-10-PCS; 2018-10-14)
DX: F13.230 Sedative, hypnotic or anxiolytic dependence with withdrawal, uncomplicated (principal); F33.2 Major depressive disorder, recurrent severe without psychotic features; G40.509 Epileptic seizures related to external causes, not intractable, without status epilepticus; E87.3 Alkalosis; F41.1 Generalized anxiety disorder; G47.00 Insomnia, unspecified; Z81.1 Family history of alcohol abuse and dependence; F17.210 Nicotine dependence, cigarettes, uncomplicated; D50.9 Iron deficiency anemia, unspecified; E87.6 Hypokalemia; Z79.899 Other long term (current) drug therapy; F10.10 Alcohol abuse, uncomplicated; Y90.0 Blood alcohol level of less than 20 mg/100 ml; B18.2 Chronic viral hepatitis C; F50.9 Eating disorder, unspecified
CPT/HCPCS: 36415; 70030-TC; 80307; 80324; 80345; 80346; 80353; 83735; 84443; 84703; 85025; 86592; 86705; 86803; 87340; 87806; 93005; G0480